=== PATIENT | female | born 1980 | race Caucasian/White ===

== ENCOUNTER → 2020-09-11 12:47 | Outpatient (CLI) | payer OTHER, SELFPAY ==
--- NOTE | ~2020-09-11 | XR_ITS ---
EXAMINATION: XR abdomen obstructive series DATE: 09/11/2020 13:31 INDICATION: Left upper quadrant pain TECHNIQUE: Supine and upright views of the abdomen. FINDINGS: No prior studies for comparison. The visualized lung parenchyma is normal.. There is a nonobstructive bowel gas pattern. Gas and stool are seen throughout the colon to the level of the rectum. There is no free air. . There are cholecy stectomy clips. IMPRESSION: 1. No acute abdominal abnormality. Reviewed, dictated and finalized at location B.
--- NOTE | ~2020-09-11 | XR_ITS ---
EXAMINATION: XR chest 2V 09/11/2020 13:30 INDICATION: Left upper quadrant pain PROCEDURE: 2 view chest COMPARISON: 07/26/2018 FINDINGS: The lungs are clear. The cardiomediastinal silhouette is within normal limits. There are no pleural effusions. There is no pneumothorax suspected. IMPRESSION: 1: NO ACUTE CARDIOPULMONARY DISEASE. Reviewed, dictated and finalized at location B.
== END ==
PROVIDERS: PCP Physician Assistant; Visit Provider Physician Assistant
DX: R10.12 Left upper quadrant pain (principal)
CPT/HCPCS: 71046; 74019

== ENCOUNTER 2020-09-23 07:13 | Outpatient (CLI) | payer OTHER, MEDICAID, SELFPAY ==
--- NOTE | ~2020-09-23 | US_ITS ---
EXAMINATION: US abdomen complete EXAM DATE: 09/23/2020 08:06 INDICATION: R79.89 - Other specified abnormal findings of blood chemistry. TECHNIQUE: Multiple grayscale and Doppler images of the complete abdomen were obtained (by a technolo gist who performed the scan) and subsequently reviewed. There is no prior study for comparison. FINDINGS: The abdominal aorta is normal in caliber. Visualized portion IVC is patent. The pancreatic head a nd body are normal in appearance. The pancreatic tail is not visualized. The liver has normal echogenicity and contour. There are no focal liver lesions identified. There is no evidence of intrahepatic biliary duct dilation. Portal venous flow was seen in the hepatopedal , normal direction and has normal Doppler waveform. Common bile duct measures 6 mm, which is normal. The gallbladder fossa is unremarkable. Right kidney: There is normal contour and echogenicity. It measures 9.3 x 5.3 x 4.4 centimeters. T here are no focal renal lesions identified. There is no hydronephrosis. Left kidney: There is normal contour and echogenicity. It measures 11.4 x 3.6 x 5.1 centimeters. T here are no focal renal lesions identified. There is no hydronephrosis. The spleen measures 10.6 centimeters and is morphologically normal. IMPRESSION: Unremarkable complete abdominal ultrasound exam. Reviewed, dictated and finalized at location A.
== END 2020-09-23 07:14 | disposition home or self-care (01) ==
PROVIDERS: PCP Physician Assistant; Visit Provider Physician Assistant
DX: R79.89 Other specified abnormal findings of blood chemistry (principal)
CPT/HCPCS: 76700

== ENCOUNTER 2021-04-23 13:28 | Emergency (ER) | payer OTHER, MEDICAID, SELFPAY ==
[2021-04-23 13:37] VITALS: BP 116/73; PULSE 92; RESP 16; TEMP 36.9; O2SAT 100
[2021-04-23 13:54] VITALS: BP 116/73; PULSE 92; RESP 16; TEMP 36.9; O2SAT 100
--- NOTE | 2021-04-23 14:00 | ED.URI ---
HPI - URI/Sore Throat General Chief Complaint: Upper Respiratory Infection Stated Complaint: Sore Throat,Headache,Abdominal Pain Source: patient and RN notes reviewed Mode of arrival: ambulatory History of Present Illness HPI Narrative: This is a 40-year-old female that came in a couple of days ago with her 2 sons who were both diagnosed with strep. Patient notes that shortly after she had started to develop throat pain with nausea and stomach aches with a headache. Patient tested negative for strep she will be treated for strep due to her exposure and physical examination. The patient denies SOB, CP, palpitation, extremity numbness, lightheadedness, dizziness, constipation, diarrhea, chills, or fever. MD elicited complaint: sore throat Related Data Allergies Allergy/AdvReac Type Severity Reaction Status Date / Time cefaclor Allergy Mild Rash Verified 04/23/21 13:54 Review of Systems Review of Systems: A 14 organ system Review of Systems was performed and pertinent positives included in the HPI, otherwise remaining ROS is negative. [facility] Past Medical History Medical History (Updated 04/23/21 @ 13:59 by KATHI Gonsalves) Hypothyroidism Surgical History Surgical History H/O thyroidectomy Hx of cholecystectomy Family History Family History Father Malignant neoplasm of prostate Mother Asthma Daughter Rhabdomyosarcoma Grandparent Hypothyroid Social History Social History Smoking packs per day: 0.5 Smoking cigarettes per day: 10.0 Years smoked: 18 Smoking pack-years: 9.00 Smoking status: Current every day smoker Alcohol intake: current Gender identity (if verbalized by the patient): Female Exam Narrative: GENERAL: This is a well-nourished, well-developed patient, in no apparent distress. HEAD: normocephalic, atraumatic. EYES: PERRL. Sclera clear/white. Vision is grossly intact. EARS: External ears normal, auditory canals clear and without drainage, TMs normal without perforation. Hearing grossly intact. NOSE: External nose normal with no obvious nasal discharge, nares without redness, no rhinorrhea. THROAT: Mucous membranes moist, posterior pharynx edematous with erythema. NECK: Neck supple, non-tender without lymphadenopathy, masses or thyromegaly. CARDIOVASCULAR: Regular rate and rhythm without murmurs, gallops, or rubs. RESPIRATORY: Clear to auscultation. Breath sounds equal bilaterally. No wheezes, rales, or rhonchi. GASTROINTESTINAL: Abdomen soft, non-tender, nondistended. Bowel sounds are active. No hepato-splenomegaly, or palpable masses. No guarding. SKIN: warm, intact with no suspicious lesions or rash, good texture and turgor. NEURO: awake, alert, and oriented to person, place and time. There were no obvious focal neurologic abnormalities. Steady gait EXTREMITIES: Normal range of motion. No edema. No calf tenderness. Negative Homans sign bilaterally. BACK: Nontender without deformity or crepitance. No flank tenderness. Course Course Emergency Course: Patient will be treated for pharyngitis. Patient strep test negative patient has come in contact with strep positive patients. Patient son came in a couple of days both diagnosed with strep medicated shortly after she developed symptoms such as sore throat and nausea with a headache. Vital Signs Vital signs: Vital Signs Temperature 98.5 F 04/23/21 13:37 Pulse Rate 92 04/23/21 13:37 Respiratory Rate 16 04/23/21 13:37 Blood Pressure 116/73 04/23/21 13:37 Pulse Oximetry 100 04/23/21 13:37 Temperature 98.5 F 04/23/21 13:54 Pulse Rate 92 04/23/21 13:54 Respiratory Rate 16 04/23/21 13:54 Blood Pressure 116/73 04/23/21 13:54 Pulse Oximetry 100 04/23/21 13:54 MDM - URI/Sore Throat Differential Diagnosis Differential diagnosi
== END 2021-04-23 14:01 | disposition home or self-care (01) ==
PROVIDERS: Emergency Provider Nurse Practitioner; PCP Family Medicine
DX: J02.9 Acute pharyngitis, unspecified (principal); F17.210 Nicotine dependence, cigarettes, uncomplicated; E03.9 Hypothyroidism, unspecified
CPT/HCPCS: 87081; 87880; 99213; G0463

== ENCOUNTER 2021-04-29 13:41 | Emergency (ER) | payer OTHER, MEDICAID, SELFPAY ==
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
[2021-04-29 14:10] VITALS: BP 103/67; PULSE 87; RESP 18; TEMP 36.8; O2SAT 100
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
== END 2021-04-29 15:25 | disposition home or self-care (01) ==
PROVIDERS: Emergency Provider Nurse Practitioner; PCP Family Medicine
DX: S60.212A Contusion of left wrist, initial encounter (principal); Y04.2XXA Assault by strike against or bumped into by another person, initial encounter; Y92.219 Unspecified school as the place of occurrence of the external cause; Y99.0 Civilian activity done for income or pay; E89.0 Postprocedural hypothyroidism; F17.210 Nicotine dependence, cigarettes, uncomplicated
CPT/HCPCS: 73110; 99213; G0463

== ENCOUNTER 2021-06-11 10:53 | Emergency (ER) | payer OTHER, MEDICAID, SELFPAY ==
[2021-06-11 11:59] VITALS: BP 106/63; PULSE 86; RESP 18; TEMP 37; O2SAT 99
[2021-06-11 12:17] VITALS: BP 106/63; PULSE 86; RESP 18; TEMP 37; O2SAT 99
--- NOTE | 2021-06-11 13:18 | ED.URI ---
HPI - URI/Sore Throat General Chief Complaint: Upper Respiratory Infection Stated Complaint: sorethroat,bilateral ear discomfort,rash on arms Time Seen by Provider: 06/11/21 13:18 Source: patient and RN notes reviewed Mode of arrival: ambulatory Limitations: no limitations History of Present Illness HPI Narrative: 40-year-old female presents with concern for sore throat, headache, fever, bilateral ear pain. Reports symptoms started 2 days ago. She also reports a rash on her right arm that is occasionally painful. Reports it has come and gone every couple months for more than a year. Reports it is in the same location. She is concerned for shingles. She denies any other area of rash. MD elicited complaint: cough and sore throat Related Data Allergies Allergy/AdvReac Type Severity Reaction Status Date / Time cefaclor Allergy Mild Rash Verified 04/23/21 13:54 Review of Systems Review of Systems: CONSTITUTIONAL: Denies malaise, chills, sweats. Reports fever fever. EYES: Denies visual changes, redness, or discharge. ENT: Reports rhinorrhea, congestion, sore throat, ear pain. Denies sinus pain CARDIOVASCULAR: Denies chest pain, palpitations, or edema. RESPIRATORY: Denies cough. Denies dyspnea. GASTROINTESTINAL: Denies abdominal pain, nausea, vomiting, diarrhea SKIN: Reports painful rash on her right forearm MUSCULOSKELETAL: Denies myalgia. NEUROLOGIC: Denies headache. All systems reviewed & are unremarkable except as noted in HPI and below PMFSH Past Medical History Medical History Hypothyroidism Surgical History Surgical History H/O thyroidectomy Hx of cholecystectomy Family History Family History Father Malignant neoplasm of prostate Mother Asthma Daughter Rhabdomyosarcoma Grandparent Hypothyroid Social History Social History Smoking packs per day: 0.5 Smoking cigarettes per day: 10.0 Years smoked: 18 Smoking pack-years: 9.00 Smoking status: Current every day smoker Alcohol intake: current Gender identity (if verbalized by the patient): Female Comments At time of signature, agree with nursing past medical, surgical, social and family history. There is no relevant family history pertinent to the presenting complaint Exam Narrative: GENERAL: Well-appearing, well-nourished, and in no acute distress. HEAD: Normocephalic EYES: PERRLA, conjunctivae clear ENT: Nares clear. Mucous membranes moist. TM pearly montgomery with sharp light reflex bilaterally; no tragal tenderness. Oropharynx not erythematous without lesions. Tonsils not enlarged and without exudate, no drooling, no hoarseness, no trismus, uvula midline. NECK: Supple. No lymphadenopathy CHEST: Clear to auscultation, breath sounds equal. No wheezing, rhonchi, rales, or stridor. No respiratory distress, speaks in full sentences. HEART: Regular rate and rhythm. No murmur heard. SKIN: Warm, dry 4 cm area of vesicular rash in later stages of healing noted to the right forearm NEURO: Alert and oriented x3. PSYCH: Normal mood and affect Course Course Emergency Course: Patient is aware of diagnosis, understands and agrees to treatment plan. Anticipatory guidance given. Patient agrees to follow-up as directed and is aware of reasons to seek care at the emergency department. Portions of this record may have been created with voice recognition software Vital Signs Vital signs: Vital Signs Temperature 98.6 F 06/11/21 11:59 Pulse Rate 86 06/11/21 11:59 Respiratory Rate 18 06/11/21 11:59 Blood Pressure 106/63 06/11/21 11:59 Pulse Oximetry 99 06/11/21 11:59 Temperature 98.6 F 06/11/21 12:17 Pulse Rate 86 06/11/21 12:17 Respiratory Rate 18 06/11/21 12:17 Blood Pressure 106/63 06/11
== END 2021-06-11 14:05 | disposition home or self-care (01) ==
PROVIDERS: Emergency Provider Nurse Practitioner; PCP Family Medicine
DX: J06.9 Acute upper respiratory infection, unspecified (principal); Z20.822 Contact with and (suspected) exposure to COVID-19; F17.210 Nicotine dependence, cigarettes, uncomplicated; E03.9 Hypothyroidism, unspecified
CPT/HCPCS: 87070; 87081; 87255; 87426; 87880; 99213; C9803; G0463

== ENCOUNTER 2021-06-19 15:05 | Emergency (ER) | payer OTHER, MEDICAID, SELFPAY ==
[2021-06-19 15:20] VITALS: BP 122/84; PULSE 90; RESP 18; TEMP 36.7; O2SAT 100
--- NOTE | 2021-06-19 15:40 | ED.URI ---
HPI - URI/Sore Throat General Chief Complaint: Upper Respiratory Infection Stated Complaint: cold symptoms Time Seen by Provider: 06/19/21 15:41 Source: patient, RN notes reviewed and old records reviewed Mode of arrival: ambulatory Limitations: no limitations History of Present Illness HPI Narrative: 40-year-old female presents to [facility] with complaints of flulike symptoms on and off since . She states she has had a sore throat, headache, some nausea, cough, pressure to her ears, denies any fever but has had hot flashes. Patient states she had a negative Covid antigen done on the and negative strep but no culture has been finalized. Patient reports that she has had COVID vaccines but no booster and has not had flu shot.Patient denies any acute dyspnea patient even and unlabored. MD elicited complaint: cough, sore throat and other (headache, nausea, dizzy,) Related Data Allergies Allergy/AdvReac Type Severity Reaction Status Date / Time cefaclor Allergy Mild Rash Verified 06/19/21 15:32 [facility] Past Medical History Medical History Hypothyroidism Surgical History Surgical History H/O thyroidectomy Hx of cholecystectomy Family History Family History Father Malignant neoplasm of prostate Mother Asthma Daughter Rhabdomyosarcoma Grandparent Hypothyroid Social History Social History Smoking packs per day: 0.5 Smoking cigarettes per day: 10.0 Years smoked: 18 Smoking pack-years: 9.00 Smoking status: Current every day smoker Alcohol intake: current Gender identity (if verbalized by the patient): Female Course Course Level of Care: Express Care Visit Vital Signs Vital signs: Vital Signs Temperature 36.7 C 06/19/21 15:20 Pulse Rate 90 06/19/21 15:20 Respiratory Rate 18 06/19/21 15:20 Blood Pressure 122/84 06/19/21 15:20 Pulse Oximetry 100 06/19/21 15:20 Temperature 36.7 C 06/19/21 15:20 Pulse Rate 90 06/19/21 15:20 Respiratory Rate 18 06/19/21 15:20 Blood Pressure 122/84 06/19/21 15:20 Pulse Oximetry 100 06/19/21 15:20 MDM - URI/Sore Throat Differential Diagnosis Differential diagnosis: Likely upper respiratory infection, viral infection and pharyngitis Medical Records Attestation: I reviewed the patient's medical records. Lab Data Attestation: I reviewed the patient's lab results. Lab results narrative: Influenza A negative influenza B neck, PCR Covid awaiting results, strep culture pending Critical Care Time Critical Care Time Critical Care Time: No Discharge Plan Discharge Clinical Impression: Encounter for screening for COVID-19 Upper respiratory infection Qualifiers: URI type: unspecified URI Qualified Code(s): J06.9 - Acute upper respiratory infection, unspecified Patient Disposition: Home, Self-Care Condition: Stable Instructions: Upper Respiratory Infection (ED) Additional Instructions: Increase fluids especially juices and water [id number] cough and cold medicine of your choice for your symptoms Claritin Leida or Zyrtec daily while having nasal symptoms heat to the face 20-30 minutes 4-6 times a day for pain Salt water gargles, throat lozenges or throat sprays as desired If your symptoms persist, change or worsen significantly before you can contact your personal physician then please, without delay, go to the emergency department for further evaluation. Follow-up with PCP in 7-10 days or sooner if needed Must quarantine until PCR has resulted Prescriptions: No Action levothyroxine 150 mcg tablet 150 mcg PO DAILY Qty: 30 RF: 2 Follow-up/Referrals: Ambar Berrios MD [Primary Care Provider] - Time of Disposition: 16:37 Quality Rodger Coma Scale Eyes:
[2021-06-21 16:23] LABS: SARS-CoV-2 RNA PCR Negative
== END 2021-06-19 16:45 | disposition home or self-care (01) ==
PROVIDERS: Emergency Provider Registered Nurse; PCP Family Medicine
DX: J06.9 Acute upper respiratory infection, unspecified (principal); Z20.822 Contact with and (suspected) exposure to COVID-19; E89.0 Postprocedural hypothyroidism
CPT/HCPCS: 87804; 99213; C9803; G0463; U0003; U0005

== ENCOUNTER 2021-12-10 13:32 | Emergency (ER) | payer OTHER, MEDICAID, SELFPAY ==
[2021-12-10 13:47] VITALS: BP 107/78; PULSE 95; RESP 20; TEMP 37; O2SAT 98
--- NOTE | 2021-12-10 14:05 | ED.URI ---
HPI - URI/Sore Throat General Chief Complaint: Upper Respiratory Infection Stated Complaint: bodyache,stuffy nose Time Seen by Provider: 12/10/21 14:06 History of Present Illness HPI Narrative: Annie Marrero is a 41 yo female with PMH of thyroid disease [facility], states has a bad taste in her mouth her sinuses are draining and she felt that he last night. Not had a fever. Took Zyrtec and nyquil. Started about 2 days ago has not improved. Discussed issues around bacterial and viral infections Related Data Home Medications Medication Instructions Recorded Confirmed liothyronine 5 mcg tablet 1 tablet DAILY 12/10/21 12/10/21 Allergies Allergy/AdvReac Type Severity Reaction Status Date / Time cefaclor Allergy Mild Rash Verified 12/10/21 14:13 Review of Systems Review of Systems: CONSTITUTIONAL: Denies fever, chills, sweats. EYES: Denies visual changes, redness, discharge. ENT: Denies rhinorrhea, has congestion, sore throat, otalgia. CARDIOVASCULAR: Denies chest pain, palpitations, edema. RESPIRATORY: Denies dyspnea, wheezing, cough GASTROINTESTINAL: Denies abdominal pain, nausea, vomiting, diarrhea. GENITOURINARY: Denies dysuria, hematuria, abnormal discharge SKIN: Denies rash or itching. NEUROLOGIC: Denies numbness, or focal weakness. PSYCHIATRIC: Denies anxiety or depression. [facility] Past Medical History Medical History Hypothyroidism Surgical History Surgical History H/O thyroidectomy Hx of cholecystectomy Family History Family History Father Malignant neoplasm of prostate Mother Asthma Daughter Rhabdomyosarcoma Grandparent Hypothyroid Social History Social History Smoking packs per day: 0.5 Smoking cigarettes per day: 10.0 Years smoked: 18 Smoking pack-years: 9.00 Smoking status: Current every day smoker Alcohol intake: current Gender identity (if verbalized by the patient): Female Comments At time of signature, I agree with nursing past medical, surgical, social and family history. There is no relevant family history pertinent to the presenting complaint. Exam Narrative: GENERAL: This is a well-nourished, well-developed patient, in mild distress. HEAD: normocephalic, atraumatic. EYES: Sclera clear/white. Vision is grossly intact. EARS: External ears normal, auditory canals erythematous and without drainage, TMs normal without perforation. Hearing grossly intact. NOSE: External nose normal without nasal discharge, nares without redness, no rhinorrhea. THROAT: Mucous membranes moist, posterior pharynx mild erythema NECK: Neck supple, non-tender CARDIOVASCULAR: Regular rate and rhythm without murmurs, gallops, or rubs. RESPIRATORY: Clear to auscultation. Breath sounds equal bilaterally. No wheezes, rales, or rhonchi. GASTROINTESTINAL: Not done SKIN: warm, intact with no suspicious lesions or rash, good texture and turgor. NEURO: awake, alert, and oriented to person, place and time. There were no obvious focal neurologic abnormalities. Steady gait EXTREMITIES: Normal range of motion. BACK: Nontender without deformity Course Course Emergency Course: Patient here with upper respiratory symptoms including sinus drainage COVID test is positive Strep and flu are negative Start on Flonase, Sudafed, Tylenol and ibuprofen push fluids and isolate Level of Care: Express Care Visit Vital Signs Vital signs: Vital Signs Temperature 98.6 F 12/10/21 13:47 Pulse Rate 95 12/10/21 13:47 Respiratory Rate 20 12/10/21 13:47 Blood Pressure 107/78 12/10/21 13:47 Pulse Oximetry 98 12/10/21 13:47 Oxygen Delivery Room Air 12/10/21 13:47 Temperature 98.6 F 12/10/21 13:47 Pulse Rate 95 12/10/21 13:47 R
== END 2021-12-10 14:26 | disposition home or self-care (01) ==
PROVIDERS: Emergency Provider Nurse Practitioner; PCP Family Medicine
DX: U07.1 COVID-19 (principal); E03.9 Hypothyroidism, unspecified; F17.210 Nicotine dependence, cigarettes, uncomplicated
CPT/HCPCS: 87081; 87426; 87804; 87880; 99213; C9803; G0463

== ENCOUNTER 2022-05-12 17:23 | Emergency (ER) | payer OTHER, SELFPAY ==
--- NOTE | ~2022-05-12 | XR_ITS ---
XR chest 2V DATE: 05/12/2022 18:03 INDICATION: Cough for about a week TECHNIQUE: 2 views COMPARISON: 09/11/2020 2 view chest FINDINGS: Normal heart size. No hilar or mediastinal enlargement. No pulmonary infiltrate or consolid ation, pleural effusion or pulmonary vascular congestion or pneumothorax. Status post cholecystectomy. Mild thoracolumbar dextroscoliosis. IMPRESSION: No active cardiopulmonary disease Reviewed, dictated and finalized at location A. Y SALES AUDIT CLERK
[2022-05-12 17:46] VITALS: BP 121/83; PULSE 79; RESP 18; TEMP 36.6; O2SAT 99
--- NOTE | 2022-05-12 18:04 | ED.URI ---
HPI - URI/Sore Throat General Chief Complaint: Upper Respiratory Infection Stated Complaint: chest congestion,headache,dizziness Time Seen by Provider: 05/12/22 17:50 Source: patient Mode of arrival: ambulatory Limitations: no limitations History of Present Illness HPI Narrative: Annie is a 41-year-old female patient presenting to clinic today with complaints of chest congestion, headache, dizziness x6 days. she read denies any fever or chills currently. Reports that symptoms started with a sore throat but that has resolved. Was exposed to someone with COVID however she is taken for COVID test during her illness and all of been negative MD elicited complaint: sore throat and nasal congestion Related Data Home Medications Medication Instructions Recorded Confirmed liothyronine 5 mcg tablet 1 tablet DAILY 12/10/21 05/12/22 Allergies Allergy/AdvReac Type Severity Reaction Status Date / Time cefaclor Allergy Mild Rash Verified 05/12/22 17:53 Review of Systems Review of Systems: Pertinent positives per HPI. Patient denies any fever, chills, rash, headache, visual changes, dizziness, cough, shortness of breath, chest pain, palpitations, nausea, vomiting, diarrhea, constipation, abdominal pain, or any urinary issues. [facility] Past Medical History Medical History Hypothyroidism Surgical History Surgical History H/O thyroidectomy Hx of cholecystectomy Family History Family History Father Malignant neoplasm of prostate Mother Asthma Daughter Rhabdomyosarcoma Grandparent Hypothyroid Social History Social History Smoking packs per day: 0.5 Smoking cigarettes per day: 10.0 Years smoked: 18 Smoking pack-years: 9.00 Smoking status: Current every day smoker Alcohol intake: current Gender identity (if verbalized by the patient): Female Comments At the time of my signature, I reviewed and agree with the nursing past medical, surgical, social, and family history. There is no relevant family history pertinent to the patient complaint. Exam Narrative: General: Well-developed, well nourished, in no apparent distress Head: Normocephalic, atraumatic Eyes: Pupils equally round and reactive to light bilaterally, EOM intact, sclera and conjunctive clear, no discharge, lids normal Ears: TMs intact, dull, bulging, ear canals clear, no drainage, grossly hearing normal. Nose: Nares patent, clear nasal discharge, no inflammation, no sinus tenderness. Mouth: Oral pharynx without lesions or masses, good dentition, MMM. postnasal drip Neck: Supple, trachea midline, no enlargement of anterior or posterior cervical nodes, no thyroid masses or goiter palpable. Cardio: Regular rate and rhythm, s1 and s2 normal, no murmur appreciated. Resp: Clear to auscultation bilaterally, no rhonchi, rales, wheezing or rubs Course Course Emergency Course: Portions of this record may have been created with voice recognition software. Level of Care: Express Care Visit Vital Signs Vital signs: Vital Signs Temperature 36.6 C 05/12/22 17:46 Pulse Rate 79 05/12/22 17:46 Respiratory Rate 18 05/12/22 17:46 Blood Pressure 121/83 05/12/22 17:46 Pulse Oximetry 99 05/12/22 17:46 Oxygen Delivery Room Air 05/12/22 17:46 Temperature 36.6 C 05/12/22 17:46 Pulse Rate 79 05/12/22 17:46 Respiratory Rate 18 05/12/22 17:46 Blood Pressure 121/83 05/12/22 17:46 Pulse Oximetry 99 05/12/22 17:46 Oxygen Delivery Room Air 05/12/22 17:46 Vital signs reviewed MDM - URI/Sore Throat MDM Narrative Medical decision making narrative: At the time of the patient is resting comfortably on the exam table. Chest x-ray was performed and was negative for any sig
== END 2022-05-12 17:50 | disposition home or self-care (01) ==
PROVIDERS: Emergency Provider Nurse Practitioner Family; PCP Family Medicine
DX: J06.9 Acute upper respiratory infection, unspecified (principal); R05.9 Cough, unspecified; H69.83 Other specified disorders of Eustachian tube, bilateral; F17.210 Nicotine dependence, cigarettes, uncomplicated; E89.0 Postprocedural hypothyroidism
CPT/HCPCS: 71046; 99213; G0463

== ENCOUNTER 2022-09-30 11:34 | Emergency (ER) | payer OTHER, SELFPAY ==
[2022-09-30 11:52] VITALS: BP 126/77; PULSE 80; RESP 16; TEMP 36.3; O2SAT 100
== END 2022-09-30 14:26 | disposition left against medical advice (07) ==
PROVIDERS: PCP Family Medicine
DX: R42 Dizziness and giddiness (principal)
CPT/HCPCS: 99199

== ENCOUNTER 2022-10-01 11:52 | Outpatient (CLI) | payer OTHER, SELFPAY ==
--- NOTE | ~2022-10-01 | XR_ITS ---
Supine and upright views of the abdomen Clinical history: Chronic bloating and constipation Findings: Bowel gas pattern is nonspecific. No evidence for obstruction or free air. No abnormal mass lesion or calcification is seen. Cholecystectomy clips are present. Osseous structures are intact. Impression: No significant abnormality is seen. Minimal stool burden. Reviewed, dictated and finalized at [facility]. Impression: No significant abnormality is seen. Minimal stool burden.
[2022-10-01 12:39] LABS: Hematocrit 40.7 % (37.0-47.0); Hemoglobin 13.6 g/dL (12.0-15.0); Mean Corpuscular HGB Conc 33.4 g/dl (32-36); Mean Corpuscular Hemoglobin 30.2 pg (26-34); Mean Corpuscular Volume 90.4 fl (80-100); Mean Platelet Volume 8.6 fl (7.4-10.4); Platelet Count Result 279 k/mm3 (150-375); Red Cell Distribution Width 12.3 % (11.5-14.5); White Blood Count 9.7 K/mm3 (4.5-10.0)
[2022-10-01 12:51] LABS: Alanine Aminotransferase 23 U/L (6-35); Albumin Level 4.6 g/dL (3.5-5.1); Alkaline Phosphatase 47 U/L (38-126); Anion Gap 8 mmol/L (8-16); Aspartate Amino Transferase 18 U/L (14-36); Bilirubin,Total 0.4 mg/dL (0.2-1.3); Blood Urea Nitrogen 21 mg/dL (7-17); Calcium 9.2 mg/dL (8.4-10.2); Carbon Dioxide 28 mmol/L (22-30); Chloride 102 mmol/L (98-107); Estimated Glomerular Filt Rate > 60; Glucose 92 mg/dL (65-110); Potassium 4.3 mmol/L (3.4-5.0); Sodium 138 mmol/L (137-145)
--- NOTE | 2022-10-01 12:52 | ECG_ITS ---
Measurements Intervals [place] Rate: 69 P: 49 SC: 201 QRS: 64 QRSD: 80 T: 46 QT: 358 QTc: 385 Interpretive Statements SINUS RHYTHM NORMAL ELECTROCARDIOGRAM NO PREVIOUS ECG AVAILABLE FOR COMPARISON Electronically Signed On 10-01-2022 15:40:12 CDT by Edward Mondragon M.D.
[2022-10-01 13:00] LABS: Hemoglobin A1C 5.2 % (<5.7)
[2022-10-01 13:20] LABS: Free T4 Free Thyroxine 1.35 ng/mL (0.78-2.19)
[2022-10-01 14:39] LABS: Thyroid Stimulating Hormone 0.037 uIU/mL (0.465-4.680)
[2022-10-08 17:10] LABS: Gliadin AB, IgG <1.0 U/mL (<15.0); TTG IGA AB <1.0 U/mL (<15.0)
== END 2022-10-01 11:53 | disposition home or self-care (01) ==
PROVIDERS: PCP Family Medicine; Referring Provider Nurse Practitioner Family; Visit Provider Physician Assistant
DX: R42 Dizziness and giddiness (principal); R14.0 Abdominal distension (gaseous); R53.83 Other fatigue; K59.00 Constipation, unspecified
CPT/HCPCS: 36415; 74018; 80053; 83036; 84439; 84443; 85027; 86255; 86364; 93005

== ENCOUNTER 2023-07-06 19:33 | Emergency (ER) | payer BC, SELFPAY ==
--- NOTE | ~2023-07-06 | XR_ITS ---
EXAMINATION: XR chest 2V DATE: 07/06/2023 20:25 INDICATION: Shortness of breath. Cough. Chest pain. TECHNIQUE: Frontal and lateral views of the chest were obtained. COMPARISON: Chest 2 views 05/12/2022 FINDINGS: There is no pneumonia, pleural effusion, or pneumothorax. The heart size is normal. Surgica l clips in the right upper quadrant are likely from cholecystectomy. IMPRESSION: 1. No acute cardiopulmonary disease. Reviewed, dictated and finalized at location E. E PRACTITIONER PHYSICIANS ASSISTANT
[2023-07-06 19:35] VITALS: BP 136/94; PULSE 85; RESP 20; TEMP 37.2; O2SAT 100
--- NOTE | 2023-07-06 19:39 | ECG_ITS ---
Measurements Intervals [place] Rate: 76 P: 47 NC: 196 QRS: 49 QRSD: 86 T: 44 QT: 354 QTc: 399 Interpretive Statements SINUS RHYTHM BASELINE WANDER- V2-V3 NORMAL ECG NO PREVIOUS ECG AVAILABLE FOR COMPARISON Electronically Signed On 07-07-2023 6:30:53 HPLC CHEMIST by Javy La D.O.
[2023-07-06 19:58] LABS: Basophils Percent Auto 0.5 % (0.2-1.2); Eosinophils Absolute Auto 0.2 K/mm3 (0-0.3); Eosinophils Percent Auto 2.3 % (0-4.4); Hematocrit 36.9 % (37.0-47.0); Hemoglobin 12.3 g/dL (12.0-15.0); Immature Granulocyte Absolute 0.02 K/mm3 (0.00-0.031); Immature Granulocyte Percent A 0.3 % (0-0.5); Lymphocytes Percent Auto 33.2 % (18.3-44.2); Mean Corpuscular HGB Conc 33.3 g/dl (32-36); Mean Corpuscular Hemoglobin 29.9 pg (26-34); Mean Corpuscular Volume 89.6 fl (80-100); Mean Platelet Volume 8.2 fl (7.4-10.4); Monocytes Absolute Auto 0.6 K/mm3 (0.1-0.6); Neutrophils Absolute Auto 4.5 K/mm3 (1.3-6.7); Neutrophils Percent Auto 56.7 % (45.5-73.1); Platelet Count Result 297 k/mm3 (150-375); Red Blood Count 4.12 M/mm3 (4.2-5.4); Red Cell Distribution Width 12.1 % (11.5-14.5); White Blood Count 7.8 K/mm3 (4.5-10.0)
[2023-07-06 20:06] LABS: Alanine Aminotransferase 17 U/L (6-35); Albumin Level 4.5 g/dL (3.5-5.1); Alkaline Phosphatase 43 U/L (38-126); Anion Gap 12 mmol/L (8-16); Aspartate Amino Transferase 23 U/L (14-36); Bilirubin,Total 0.4 mg/dL (0.2-1.3); Blood Urea Nitrogen 23 mg/dL (7-17); Calcium 9.5 mg/dL (8.4-10.2); Carbon Dioxide 20 mmol/L (22-30); Chloride 106 mmol/L (98-107); Estimated CRCL calculation 79 ml/min; Estimated Glomerular Filt Rate > 60; Glucose 122 mg/dL (65-110); Potassium 3.7 mmol/L (3.4-5.0); Sodium 138 mmol/L (137-145)
[2023-07-06 20:18] LABS: Troponin I < 0.012 ng/mL (0.000-0.034)
[2023-07-06 20:35] LABS: Influenza A QL RT-PCR Negative (Negative); Influenza B QL RT-PCR Negative (Negative); RSV RNA, RT-PCR Negative (Negative); SARS-CoV-2 RNA PCR Negative (Negative)
[2023-07-06 22:49] VITALS: BP 103/52; PULSE 63; RESP 17; O2SAT 97
[2023-07-06 23:09] VITALS: BP 93/64; PULSE 68; RESP 18; O2SAT 98
--- NOTE | 2023-07-06 23:44 | ED.GENADULT ---
HPI - General Adult General Chief complaint: Shortness of Breath/Dyspnea Stated complaint: I cannot breath Time Seen by Provider: 07/06/23 22:56 Source: patient Mode of arrival: ambulatory Limitations: no limitations History of Present Illness HPI narrative: This is a 42-year-old female who presents to the ED with chief complaint of shortness of breath for the past 2 weeks intermittently. Reports that she occasionally has some right-sided chest heaviness. She reports that this caused her to feel anxious and she started to panic today. Reports that she was sick with a viral illness a couple weeks ago. Denies any current cough, fevers, chills, congestion, leg swelling, palpitations, recent travel, hospitalization or estrogen hormone use. Related Data Home Medications Medication Instructions Recorded Confirmed polyethylene glycol 3350 17 gram 17 g PO DAILY 09/21/22 06/24/23 oral powder packet (Miralax) thyroid (pork) 120 mg tablet 120 mg PO DAILY 09/21/22 06/24/23 ([place] Thyroid) liothyronine 5 mcg tablet 10 mcg PO BID 09/29/22 06/24/23 Allergies Allergy/AdvReac Type Severity Reaction Status Date / Time cefaclor Allergy Mild Rash Verified 06/24/23 14:04 Review of Systems Review of Systems: All systems as dictated in [facility] Past Medical History Medical History Abdominal bloating Anxiety Niyah's disease Hypothyroidism Tobacco use Surgical History Surgical History H/O thyroidectomy Hx of cholecystectomy Family History Family History Father Malignant neoplasm of prostate Mother Asthma Daughter Rhabdomyosarcoma Grandparent Hypothyroid Social History Social History Smoking packs per day: 0.5 Smoking cigarettes per day: 10.0 Years smoked: 20 Smoking pack-years: 10.00 Smoking status: Current every day smoker Alcohol intake: never Substance use: never Substance use type: does not use Lack of Transportation: No Lack of Food: Never True Current Housing: I Have Housing Concerned About Future Housing: No Difficulty Paying Gas/Electric Bills: No Difficulty Paying for Meds: No Currently Unemployed: No Education: Trade/Vocational Certificate Difficulty w/ Childcare or Family Care: No Gender identity (if verbalized by the patient): Female Exam Narrative: GENERAL: Well-appearing, well-nourished, and in no acute distress. HEAD: Normocephalic, atraumatic. EYES: PERRLA and EOMI. ENT: Nares clear, no rhinorrhea or epistaxis. Mucous membranes moist. Oropharynx without tonsillar hypertrophy exudate or other lesions. NECK: Supple. No adenopathy or masses. CHEST: No respiratory distress. Clear to auscultation. No wheezes rales or rhonchi HEART: Regular rate and rhythm. No murmur heard. Normal peripheral pulses. ABDOMEN: Soft, nontender, nondistended, normal active bowel sounds. MSK: Normal range of motion. No edema. SKIN: Warm, dry, no rash. NEURO: Alert and oriented x3. No focal deficits. PSYCH: Normal mood and affect. Course Vital Signs Vital signs: Vital Signs Temperature 99 F 07/06/23 19:35 Pulse Rate 85 07/06/23 19:35 Respiratory Rate 20 07/06/23 19:35 Blood Pressure 136/94 H 07/06/23 19:35 Pulse Oximetry 100 07/06/23 19:35 Oxygen Delivery Room Air 07/06/23 19:35 Temperature 99 F 07/06/23 19:35 Pulse Rate 65 07/07/23 00:00 Respiratory Rate 18 07/07/23 00:00 Blood Pressure 111/64 07/07/23 00:00 Pulse Oximetry 98 07/07/23 00:00 Oxygen Delivery Room Air 07/06/23 19:35 Medical Decision Making MDM Narrative Medical decision making narrative: This is a 42-year-old female who presents to the ED with chief complaint of right-sided chest pains and shortness of breath the past 2 weeks intermittently. V
[2023-07-07] VITALS: BP 111/64; PULSE 65; RESP 18; O2SAT 98
== END 2023-07-07 | disposition home or self-care (01) ==
PROVIDERS: Emergency Medicine; Emergency Provider Physician Assistant; PCP Family Medicine
DX: R06.00 Dyspnea, unspecified (principal); Z20.822 Contact with and (suspected) exposure to COVID-19; F17.210 Nicotine dependence, cigarettes, uncomplicated; E89.0 Postprocedural hypothyroidism; F41.9 Anxiety disorder, unspecified; E06.3 Autoimmune thyroiditis
CPT/HCPCS: 36415; 71046; 80053; 84484; 85025; 87637; 93005; 99284

== ENCOUNTER 2023-12-09 15:23 | Outpatient (CLI) | payer BC, SELFPAY ==
--- NOTE | ~2023-12-09 | MM_ITS ---
EXAMINATION: MM scrn fredrick implant BI w emory HISTORY: Screening mammogram TECHNIQUE: Craniocaudal and mediolateral oblique 3-D tomosynthesis images with implant displacement a nd synthetic 2-D images were generated. Craniocaudal and mediolateral oblique views of the breasts wi thout implant displacement were obtained using full field digital mammography. CAD analysis was submi tted and interpreted. COMPARISON: No prior mammogram is available for comparison at this institution. BREAST PARENCHYMAL COMPOSITION: The breasts are heterogeneously dense, which may obscure small masses . FINDINGS: There is no evidence of suspicious mass, calcification, or architectural distortion to sugg est malignancy in either breast. There has been no suspicious interval change. IMPRESSION: No mammographic evidence of malignancy. Recommend routine screening mammography in one year. BI-RADS Category 1: Negative Reviewed, dictated and finalized at [facility].
== END 2023-12-09 15:24 | disposition home or self-care (01) ==
LOC: ANHIMG 15:55
PROVIDERS: PCP Family Medicine; Visit Provider Family Medicine
DX: Z12.31 Encounter for screening mammogram for malignant neoplasm of breast (principal)
CPT/HCPCS: 77063; 77067

== ENCOUNTER 2024-08-06 09:14 | Outpatient (CLI) | payer BC, SELFPAY ==
--- NOTE | ~2024-08-06 | US_ITS ---
EXAMINATION: US thyroid DATE: 08/06/2024 09:30 INDICATION: Post thyroidectomy in 1995 TECHNIQUE: Multiple ultrasound images of the thyroid were obtained. COMPARISON: None. FINDINGS: No discrete thyroid tissue is appreciated on dedicated sonographic evaluation of the thyroid gland fo ssa. IMPRESSION: As above. Reviewed, dictated and finalized at location A. DENTIAL CARE FACILITY MANAGER IMPRESSION: As above.
== END 2024-08-06 09:15 | disposition home or self-care (01) ==
PROVIDERS: PCP Family Medicine; Visit Provider Family Medicine
DX: E04.1 Nontoxic single thyroid nodule (principal)
CPT/HCPCS: 76536

== ENCOUNTER 2025-04-15 12:36 | Emergency (ER) | payer BC, SELFPAY ==
[2025-04-15 12:51] VITALS: BP 110/67; PULSE 89; RESP 18; TEMP 36.8; O2SAT 100
--- NOTE | 2025-04-15 13:03 | ED.URI ---
HPI - URI/Sore Throat General Chief Complaint: Upper Respiratory Infection Stated Complaint: URI Time Seen by Provider: 04/15/25 13:03 Source: patient Mode of arrival: ambulatory Limitations: no limitations History of Present Illness HPI Narrative: 44-year-old female presents with complaint of sinus pressure, congestion, green nasal drainage for the past 5-6 days. Reports bilateral ear pressure and pain for 1 day. Afebrile. Using [id number] Flonase, Mucinex and takes a daily antihistamine. A no nausea vomiting diarrhea. All systems reviewed and negative except as noted above. Related Data Home Medications ?Medication ?Instructions ?Recorded ?Confirmed ?Last Taken ?Type semaglutide 0.25 mg or 0.5 mg (2 0.25 mg subcut WEEKLY 04/15/25 04/15/25 Unknown History mg/3 mL) subcutaneous pen injector testosterone 50 mg/mL mg IM 04/15/25 Unknown History intramuscular solution valacyclovir 500 mg tablet 500 mg PO DAILY 04/15/25 04/15/25 Unknown History (Valtrex) Allergies Allergy/AdvReac Type Severity Reaction Status Date / Time cefaclor Allergy Mild Rash Verified 04/15/25 12:55 prednisone Allergy Mild Rash Verified 04/15/25 13:10 [facility] Past Medical History Medical History Poison mónica (~11/2024) Weight gain Leg swelling Swelling of both hands Anxiety Tobacco use Abdominal bloating Niyah's disease Hypothyroidism Surgical History Surgical History Hx of cholecystectomy H/O thyroidectomy Family History Family History Father Malignant neoplasm of prostate Mother Asthma Daughter Rhabdomyosarcoma Grandparent Hypothyroid Social History Social History Smoking packs per day: 0.5 Smoking cigarettes per day: 10.0 Years smoked: 20 Smoking pack-years: 10.00 Smoking status: Current every day smoker Alcohol intake: never Substance use: never Substance use type: does not use Lack of Transportation: No Lack of Food: Never True Current Housing: I Have Housing Concerned About Future Housing: No Difficulty Paying Gas/Electric Bills: No Difficulty Paying for Meds: No Currently Unemployed: No Education: Trade/Vocational Certificate Difficulty w/ Childcare or Family Care: No Gender identity (if verbalized by the patient): Female Comments At time of signature, agree with nursing past medical, surgical, social and family history. There is no relevant family history pertinent to the presenting complaint. Exam Narrative: GENERAL: This is a well-nourished, well-developed patient, ill-appearing but in no acute distress HEAD: normocephalic, atraumatic. EYES: PERRL. Sclera clear/white. Vision is grossly intact. EARS: External ears normal, auditory canals clear and without drainage, Fluid with mild erythema to bilateral TMs with mild bulging. No perforation bilaterally. Hearing grossly intact. NOSE: External nose normal with Congestion, purulent nasal drainage, erythema and swelling to bilateral nares. Frontal and maxillary sinus tenderness on palpation. THROAT: Mucous membranes moist, erythematous with postnasal drainage. No significant swelling or exudates NECK: Neck supple, non-tender without lymphadenopathy, masses or thyromegaly. CARDIOVASCULAR: Regular rate and rhythm without murmurs, gallops, or rubs. RESPIRATORY: Clear to auscultation. Breath sounds equal bilaterally. No wheezes, rales, or rhonchi. SKIN: warm, Dry, intact with no suspicious lesions or rash, good texture and turgor. NEURO: awake, alert, and oriented to person, place and time. There were no obvious focal neurologic abnormalities. EXTREMITIES: No joint tenderness, effusion, or edema noted. No calf tenderness. Negative Homans sign bilaterally. BACK: Nontender without deformity. No CVA tenderness. Course Course Level of Care: Express Care Visit Vital Signs Vital signs: Vital Signs Temperature 36.8 C 04/15/25 12:51 Pulse Rate 89 04/15/25 12:51 Respiratory Rate 18 04/15/25 12:51 Blood Pressure 110/67 04/15/25 12:51 Pulse Oximetry 100 04/15/25 12:51 Oxygen Delivery Room Air 04/15/25 12:51 Temperature 36.8 C 04/15/25 12:51 Pulse Rate 89 04/15/25 12:51 Respiratory Rate 18 04/15/25 12:51 Blood Pressure 110/67 04/15/25 12:51 Pulse Oximetry 100 04/15/25 12:51 Oxygen Delivery Room Air 04/15/25 12:51 Reviewed MDM - URI/Sore Throat MDM Narrative Medical decision making narrative: will treat with Augmentin for bilateral serous otitis media. Patient is well-appearing, nontoxic. Patient agrees with plan of care. Differential Diagnosis Differential diagnosis: Likely upper respiratory infection, otitis media and sinusitis Discharge Plan Discharge Clinical Impression: Acute sinusitis, Acute serous otitis media of both ears Patient Disposition: Home Condition: Stable Instructions: Antibiotic Form, Fluid In The Ear (Serous Otitis Media) (ED) Additional Instructions: take antibiotic as prescribed until gone. Take Tylenol or ibuprofen every 6-8 hours as needed for pain. Continue [id number] steroid nasal spray and antihistamine as directed on packaging. See your primary care physician if symptoms are not improving. Patient Language: Swedish Prescriptions: New fluconazole 150 mg tablet 150 mg PO ONCE 1 Days Qty: 1 0RF amoxicillin-pot clavulanate 875-125 mg tablet 1 tablet PO Q12H 10 Days Qty: 20 0RF No Action testosterone 50 mg/mL solution IM semaglutide 0.25 mg or 0.5 mg (2 mg/3 mL) pen injector 0.25 mg subcut WEEKLY Rx Instructions: for 4 weeks valacyclovir [Valtrex] 500 mg tablet 500 mg PO DAILY spironolactone 50 mg tablet 100 mg PO DAILY Qty: 180 0RF amitriptyline 10 mg tablet 10 mg PO QHS Qty: 30 0RF fluticasone propionate [Flonase Allergy Relief] 50 mcg/actuation spray,suspension 1 spray intranasal Q12H Qty: 16 0RF Rx Instructions: administer into each nostril alprazolam 0.5 mg tablet 0.5 mg PO TID PRN (Reason: anxiety) Qty: 90 0RF levothyroxine 150 mcg tablet See Rx Instructions .ROUTE .COMPLEX Qty: 90 0RF Dose Instruction: TAKE 1 TABLET BY MOUTH DAILY Rx Instructions: TAKE 1 TABLET BY MOUTH DAILY Follow-up/Referrals: Ambar Berrios MD [Primary Care Provider, Family Practice] Stand Alone Forms: Work/School Release IP Time of Disposition: 13:17
--- OUTSIDE RECORDS SUMMARY | 2025-04-15 13:47 | XMS_ITS | Encounter Summary ---
Author Organization [facility] Address [address] [place] [address] Care Team Providers Care Retail Marketing Manager Name Role Phone Ambar Berrios MD Primary Care Provider [phone] Encounter Details Date Type Department Care Team (Latest Contact Info) Description 04/28/2004 Outpatient Historical [facility], [address] [place] [address] [address] SCREENING NEC (Primary Dx) Social History Tobacco Use Types Packs/Day Years Used Date Smoking Tobacco: Never Assessed Comments Unknown Sex and Gender Information Value Date Recorded Sex Assigned at Not on file Legal Sex Female 5:10 AM WELDER Gender Identity Not on file Sexual Orientation Not on file documented as of this encounter Plan of Treatment Not on file documented as of this encounter Visit Diagnoses Diagnosis Other screening- Primary Other specified screening documented in this encounter Care Teams Retail Marketing Manager Relationship Specialty Start Date End Date Ambar Berrios MD [address] [place] [id number] PCP - General Family Practice 01/21/21 documented as of this encounter
--- OUTSIDE RECORDS SUMMARY | 2025-04-15 13:47 | XMS_ITS | Encounter Summary ---
Author Organization [facility] Address [address] [place] [address] Care Team Providers Care In Store Marketer Name Role Phone Ambar Berrios MD Primary Care Provider [phone] Encounter Details Date Type Department Care Team (Latest Contact Info) Description 08/28/2004 Outpatient Historical [facility], [address] [place] DO [address] [place] [id number] HYPOTHYROIDISM NOS (Primary Dx) Social History Tobacco Use Types Packs/Day Years Used Date Smoking Tobacco: Never Assessed Comments Unknown Sex and Gender Information Value Date Recorded Sex Assigned at Not on file Legal Sex Female 5:10 AM AUTO BODY SHOP MANAGER Gender Identity Not on file Sexual Orientation Not on file documented as of this encounter Plan of Treatment Not on file documented as of this encounter Procedures Procedure Name Priority Date/Time Associated Diagnosis Comments TSH REFLEXIVE Routine 08/28/2004 5:21 PM AUTO BODY SHOP MANAGER documented in this encounter Results * TSH REFLEXIVE (08/28/2004 5:21 PM AUTO BODY SHOP MANAGER) TSH 1.45 0.27 - 4.20 uU/mL INTERFACE SYSTEM 08/28/2004 5:21 PM AUTO BODY SHOP MANAGER Mera Stewart DO CHEMISTRY ORDERABLES Final Res ult INTERFACE SYSTEM Refer to clinic/hospital department documented in this encounter Visit Diagnoses Diagnosis Unspecified hypothyroidism- Primary documented in this encounter Care Teams In Store Marketer Relationship Specialty Start Date End Date Ambar Berrios MD [address] [place] [phone] PCP - General Family Practice 01/21/21 documented as of this encounter
--- OUTSIDE RECORDS SUMMARY | 2025-04-15 13:47 | XMS_ITS | Encounter Summary ---
Author Organization [facility] Address [address] [place] [address] Care Team Providers Care Laundry Machine Mechanic Name Role Phone Ambar Berrios MD Primary Care Provider [phone] Encounter Details Date Type Department Care Team (Late st Contact Info) Description 07/14/2001 Outpatient Historical [facility] PATIENT IN A BED Norma Naranjo MD [address] [place] [address] [address] [address] PILONIDAL CYST W/O ABSC (Primary Dx) Social History Tobacco Use Types Packs/Day Years Used Date Smoking Tobacco: Never Assessed Comments Unknown Sex and Gender Information Value Date Recorded Sex Assigned at Not on file Legal Sex Female 5:10 AM COMMAND AND CONTROL SPECIALIST Gender Identity Not on file Sexual Orientation Not on file documented as of this encounter Plan of Treatment Not on file documented as of this encounter Visit Diagnoses Diagnosis Pilonidal cyst without mention of abscess- Primary documented in this encounter Care Teams Laundry Machine Mechanic Relationship Specialty Start Date End Date Ambar Berrios MD [address] [place] [id number] PCP - General Family Practice 01/21/21 documented as of this encounter
--- OUTSIDE RECORDS SUMMARY | 2025-04-15 13:47 | XMS_ITS | Encounter Summary ---
Author Organization [facility] Address [address] [place] [address] Care Team Providers Care Pattern Marker Name Role Phone Ambar Berrios MD Primary Care Provider [phone] Encounter Details Date Type Department Care Team (Latest Contact Info) Description 07/03/2004 Outpatient Historical HIS [facility] Mera Motley, DO [id number] [place] [address] ESSEN HYPERTEN-ANTEPART (Primary Dx) Social History Tobacco Use Types Packs/Day Years Used Date Smoking Tobacco: Never Assessed Comments Unknown Sex and Gender Information Value Date Recorded Sex Assigned at Not on file Legal Sex Female 5:10 AM MEN'S CUSTOM HAIR PIECE CONSULTANT Gender Identity Not on file Sexual Orientation Not on file documented as of this encounter Plan of Treatment Not on file documented as of this encounter Procedures Procedure Name Priority Date/Time Associated Diagnosis Comments CREATININE CLEARANCE, SERUM Routine 07/03/2004 12:05 PM MEN'S CUSTOM HAIR PIECE CONSULTANT CREATININE, 24 HR URINE Routine 07/03/2004 12:05 PM MEN'S CUSTOM HAIR PIECE CONSULTANT PROTEIN, 24 HR URINE Routine 07/03/2004 12:05 PM MEN'S CUSTOM HAIR PIECE CONSULTANT CREATININE CLEARANCE Routine 07/03/2004 12:05 PM MEN'S CUSTOM HAIR PIECE CONSULTANT documented in this encounter Results * (ABNORMAL) CREATININE CLEARANCE (07/03/2004 12:05 PM MEN'S CUSTOM HAIR PIECE CONSULTANT) CREATININE CLEARANCE 149(H) 75 - 125 mL/min/1.7 sq meter INTERFACE SYSTEM Comment:Creatinine Clearance result is not corrected for body surface area. 07/03/2004 12:0 5 PM MEN'S CUSTOM HAIR PIECE CONSULTANT us Mera Cagle Dioneisma DO URINE ORDERABLES Final Result Performing Organization Address [facility] Phone Number INTERFACE SYSTEM Refer to clinic/hospital department * PROTEIN, 24 HR URINE (07/03/2004 12:05 PM MEN'S CUSTOM HAIR PIECE CONSULTANT) PROTEIN CONCENTRATION 7.0 mg/dL INTERFACE SYSTEM PROTEIN TOTAL, 24 HR URINE 0.11 0.00 - 0.15 g/24 hrs INTERFACE SYSTEM 07/03/2004 12:0 5 PM MEN'S CUSTOM HAIR PIECE CONSULTANT us Mera Cagle Dioneisma DO URINE ORDERABLES Final Result Performing Organization Address [facility] Phone Number INTERFACE SYSTEM Refer to clinic/hospital department * CREATININE, 24 HR URINE (07/03/2004 12:05 PM MEN'S CUSTOM HAIR PIECE CONSULTANT) START DATE 24 HR UR :[id number] :[id number] INTERFACE SYSTEM START TIME 24 HR UR 1145 time INTERFACE SYSTEM LENGTH OF COLLECTION 24 23 - 25 hr INTERFACE SYSTEM VOLUME, 24 HR URINE 1575 mL INTERFACE SYSTEM CREATININE, 24 HR URINE 1.1 0.6 - 1.8 g/24 hrs INTERFACE SYSTEM 07/03/2004 12:0 5 PM MEN'S CUSTOM HAIR PIECE CONSULTANT Result [facility] us Mera Cagle Dioneisma URINE ORDERABLES Final Result Performing Organization Address [facility] Phone Number INTERFACE SYSTEM Refer to clinic/hospital department * CREATININE CLEARANCE, SERUM (07/03/2004 12:05 PM MEN'S CUSTOM HAIR PIECE CONSULTANT) CREATININE 0.5 0.4 - 1.2 mg/dL INTERFACE SYSTEM 07/03/2004 12:0 5 PM MEN'S CUSTOM HAIR PIECE CONSULTANT Result [facility] Mera Gurjit Stewart DO CHEMISTRY ORDERABLES Final Res ult Performing Organization Address [facility] Phone Number INTERFACE SYSTEM Refer to clinic/hospital department documented in this encounter Visit Diagnoses Diagnosis Benign essential hypertension antepartum- Primary documented in this encounter Care Teams Pattern Marker Relationship Specialty Start Date End Date Ambar Berrios MD [address] [place] [address] PCP - General Family Practice 01/21/21 documented as of this encounter
--- OUTSIDE RECORDS SUMMARY | 2025-04-15 13:47 | XMS_ITS | Encounter Summary ---
Author Organization [facility] Address [address] [place] [address] Care Team Providers Care Production Artist Name Role Phone Ambar Berrios MD Primary Care Provider [phone] Encounter Details Date Type Department Care Team (Latest Contact Info) Description 07/15/2004 Inpatient Historical HIS PATIENT [id number] [facility] [address] [facility] [place] [address] PREG COMPL NEC-DELIVERED (Primary Dx) Social History Tobacco Use Types Packs/Day Years Used Date Smoking Tobacco: Never Assessed Comments Unknown Sex and Gender Information Value Date Recorded Sex Assigned at Not on file Legal Sex Female 5:10 AM ALMOND HULLER Gender Identity Not on file Sexual Orientation Not on file documented as of this encounter Plan of Treatment Not on file documented as of this encounter Procedures Procedure Name Priority Date/Time Associated Diagnosis Comments BLOOD GAS CORD ARTERIAL Routine 07/15/2004 11:29 PM ALMOND HULLER CBC WITH DIFFERENTIAL Routine 07/15/2004 1:01 PM ALMOND HULLER CBC WITH DIFFERENTIAL Routine 07/15/2004 1:01 PM ALMOND HULLER ALT Routine 07/15/2004 1:01 PM ALMOND HULLER AST Routine 07/15/2004 1:01 PM ALMOND HULLER LACTATE DEHYDROGENASE Routine 07/15/2004 1:01 PM ALMOND HULLER documented in this encounter Results * (ABNORMAL) BLOOD GAS CORD ARTERIAL (07/15/2004 11:29 PM ALMOND HULLER) PH CORD ARTERIAL 7.25 7.14 - 7.40 INTERFACE SYSTEM PCO2 CORD ARTERIAL 54 32 - 69 mm Hg INTERFACE SYSTEM PO2 CORD ARTERIAL 11 8 - 33 mm Hg INTERFACE SYSTEM O2 SAT EST CORD ARTERIAL 13 5 - 59 % INTERFACE SYSTEM HCO3 CORD ARTERIAL 23 16 - 27 mmol/L INTERFACE SYSTEM BASE EXCESS CORD ARTERIAL -4.4 -7.6 - 1.3 mmol/L INTERFACE SYSTEM HEMOGLOBIN CORD ARTERIAL 13.8(L) 14.5 - 22.5 g/dL INTERFACE SYSTEM 07/15/2004 11:2 9 PM ALMOND HULLER Mera Stewart DO ABG ORDERABLES Final Result Performing Organization Address [facility] Phone Number INTERFACE SYSTEM Refer to clinic/hospital department * (ABNORMAL) CBC WITH DIFFERENTIAL (07/15/2004 1:01 PM ALMOND HULLER) NEUTROPHILS 76(H) 45 - 70 % INTERFAC E SYSTEM LYMPHOCYTES 15(L) 16 - 45 % INTERFAC E SYSTEM MONOCYTES 9 3 - 13 % INTERFACE SYSTEM EOSINOPHILS 1 0 - 7 % INTERFAC E SYSTEM BASOPHILS 0 0 - 2 % INTERFACE SYSTEM NEUTROPHIL ABSOLUTE 6.67 1.90 - 7.00 K/uL INTERFACE SYSTEM LYMPHOCYTE ABSOLUTE 1.29 0.70 - 4.50 K/uL INTERFACE SYSTEM MONOCYTE ABSOLUTE 0.78 0.10 - 1.30 K/uL INTERFACE SYSTEM EOSINOPHIL ABSOLUTE 0.09 0.00 - 0.70 K/uL INTERFACE SYSTEM BASOPHILS ABSOLUTE 0.01 0.00 - 0.20 K/uL INTERFACE SYSTEM 07/15/2004 1:01 PM ALMOND HULLER [employer]grafix Terry DO HEMATOLOGY ORDERABLES Final Re sult Performing Organization Address [facility] de Phone Number INTERFACE SYSTEM Refer to clinic/hospital department * CBC WITH DIFFERENTIAL (07/15/2004 1:01 PM ALMOND HULLER) WBC 8.8 4.0 - 9.8 K/uL INTERFACE SYSTEM RBC 4.33 3.90 - 4.90 M/uL INTERFACE SYSTEM HEMOGLOBIN 11.9 11.8 - 14.8 g/dL INTERFACE SYSTEM HEMATOCRIT 36.1 35.5 - 44.0 % INTERFACE SYSTEM MCV 83.4 82.0 - 99.0 fL INTERFACE SYSTEM MCH 27.5 27.2 - 32.6 pg INTERFACE SYSTEM MCHC 33.0 31.5 - 35.5 % INTERFACE SYSTEM RDW 13.9 11.5 - 14.5 % INTERFACE SYSTEM RDW-STDEV 42.9 37.1 - 48.7 fL INTERFACE SYSTEM PLATELETS 338 140 - 350 K/uL INTERFACE SYSTEM MPV 9.6 9.3 - 12.4 fL INTERFACE SYSTEM 07/15/2004 1:01 PM ALMOND HULLER Mera Gurjit Stewart DO HEMATOLOGY ORDERABLES Final Re sult Performing Organization Address [facility] Phone Number INTERFACE SYSTEM Refer to clinic/hospital department * (ABNORMAL) LACTATE DEHYDROGENASE (07/15/2004 1:01 PM ALMOND HULLER) LD (LACTATE DEHYDROGENASE) 115(L) 135 - 214 U/L INTERFACE SYSTEM 07/15/2004 1:01 PM ALMOND HULLER Mera Gurjit Stewrat DO CHEMISTRY ORDERABLES Final Res ult Performing Organization Address [facility] Phone Number INTERFACE SYSTEM Refer to clinic/hospital department * (ABNORMAL) AST (07/15/2004 1:01 PM ALMOND HULLER) AST 48(H) 12 - 32 U/L INTERFAC E SYSTEM 07/15/2004 1:01 PM ALMOND HULLER Mera Gurjit Stewart DO CHEMISTRY ORDERABLES Final Res ult Performing Organization Address [facility] Phone Number INTERFACE SYSTEM Refer to clinic/hospital department * (ABNORMAL) ALT (07/15/2004 1:01 PM ALMOND HULLER) ALT 89(H) 0 - 31 U/L INTERFACE SYSTEM 07/15/2004 1:01 PM ALMOND HULLER us Mera B [place] DO CHEMISTRY ORDERABLES Final Res ult INTERFACE SYSTEM Refer to clinic/hospital department documented in this encounter Visit Diagnoses Diagnosis Other specified complication of , with delivery- Primary documented in this encounter Care Teams Production Artist Relationship Specialty Start Date End Date Ambar Berrios MD [address] [place] [id number] PCP - General Family Practice 01/21/21 documented as of this encounter
--- OUTSIDE RECORDS SUMMARY | 2025-04-15 13:47 | XMS_ITS | Encounter Summary ---
Author Organization [facility] Address [address] [place] [address] Care Team Providers Care First Coat Operator Name Role Phone Ambar Berrios MD Primary Care Provider [phone] Encounter Details Date Type Department Care Team (Latest Contact Info) Description 05/29/2004 Outpatient Historical HIS [facility] Mera Motley, DO [address] [facility] [address] [place] [address] ESSEN HYPERTEN-ANTEPART (Primary Dx) Social History Tobacco Use Types Packs/Day Years Used Date Smoking Tobacco: Never Assessed Comments Unknown Sex and Gender Information Value Date Recorded Sex Assigned at Not on file Legal Sex Female 5:10 AM CONTROL SPECIALIST Gender Identity Not on file Sexual Orientation Not on file documented as of this encounter Plan of Treatment Not on file documented as of this encounter Visit Diagnoses Diagnosis Benign essential hypertension antepartum- Primary documented in this encounter Care Teams First Coat Operator Relationship Specialty Start Date End Date Ambar Berrios MD [address] [place] [address] PCP - General Family Practice 01/21/21 documented as of this encounter
--- OUTSIDE RECORDS SUMMARY | 2025-04-15 13:47 | XMS_ITS | Encounter Summary ---
Author Organization [facility] Address [address] [place] [address] Care Team Providers Care Fleet Dispatch Manager Name Role Phone Abmar Berrios MD Primary Care Provider [phone] Encounter Details Date Type Department Care Team (Latest Contact Info) Description 04/15/2004 Outpatient Historical HIS [facility], [address] Mera [address] [address] SCREENING-DIABETES MELLITUS (Primary Dx) Social History Tobacco Use Types Packs/Day Years Used Date Smoking Tobacco: Never Assessed Comments Unknown Sex and Gender Information Value Date Recorded Sex Assigned at Not on file Legal Sex Female 5:10 AM DATA ENTRY SUPERVISOR Gender Identity Not on file Sexual Orientation Not on file documented as of this encounter Plan of Treatment Not on file documented as of this encounter Visit Diagnoses Diagnosis Screening for diabetes mellitus- Primary documented in this encounter Care Teams Fleet Dispatch Manager Relationship Specialty Start Date End Date Ambar Berrios MD [address] [place] [phone] PCP - General Family Practice 01/21/21 documented as of this encounter
--- OUTSIDE RECORDS SUMMARY | 2025-04-15 13:47 | XMS_ITS | Clinical Summary ---
Author Organization [facility] Address [address] [place] [address] Phone Care Team Providers Care Crew Person Name Role Phone Ambar Berrios MD Primary Care Provider [phone] Allergies Active Allergy Reactions Criticality Noted Date Comments Cefaclor Hives High 09/02/2011 Medications sertraline (ZOLOFT) 50 mg tablet Take 50 mg by mouth daily. Active THYROID,PORK (ARMOUR THYROID ORAL) Take 1 Gram by mouth daily. Active nitrofurantoin (MACROBID) 100 mg capsule 1po bid x 7 days. 14 Capsule 8 Active levothyroxine 200 mcg tablet Take 150 mcg by mouth daily in the morning. hypothyroidism Active spironolactone (ALDACTONE) 50 mg tablet Take 50 mg by mouth daily. diuresis Active linaCLOtide (LINZESS) 72 mcg Capsule capsule Take 72 mcg by mouth daily before breakfast. constipation Active liothyronine (CYTOMEL) 25 mcg Tablet Take 25 mcg by mouth 2 times daily. 2tab each time Active dog405/iron/fo lic/dha ( FORMULA-DHA ORAL) Take by mouth. Activ e polyethylene glycol (MIRALAX) 17 gram Powder in Packet Take 17 Grams by mouth daily. Active lidocaine (XYLOCAINE) 5 % Ointment Apply to affected area every 3 hours as needed for Pain. 1/2 inch topically to anal or affected area as needed 30 Gram 2 1 Active levothyroxine sodium (UNITHROID ORAL) Take by mouth. PM Ac tive CARTILAGE-RICARDO AGEN II-HYALURON ORAL Take by mouth. Activ e phentermine HCl (PHENTERMINE ORAL) Take by mouth daily. AM Active psyllium seed, with sugar, (FIBER ORAL) Take by mouth. Ac tive L. acidophilus/L. rhamnosus (PROBIOTIC ORAL) Take by mouth. Activ e Active Problems Problem Noted Date Diagnosed Date S/P abdominal hysterectomy 11/11/2020 s/p c section (09/01) 09/02/2011 Encounters Date Type Department Care Team Description 04/10/2025 External Device Data STL ABSTRACTION Provider, Abstract 04/10/2025 External Device Data STL ABSTRACTION Provider, Abstract 04/02/2025 External Device Data STL ABSTRACTION Provider, Abstract 03/23/2025 8:37 AM CDT - 03/23/2025 11:59 PM CDT Hospital Encounter [facility] [address] [address] Praful Ramos MD Discharge Disposition: Home or Self Care 03/19/2025 External Device Data STL ABSTRACTION Provider, Abstract 03/19/2025 External Device Data STL ABSTRACTION Provider, Abstract 03/19/2025 External Device Data STL ABSTRACTION Provider, Abstract 03/14/2025 5:05 PM CDT - 03/14/2025 11:59 PM CDT Hospital Encounter [facility] [address] [address] Ambar Berrios MD Discharge Disposition: Home or Self Care 03/04/2025 Transcribe Orders Central Test Scheduling [address] [place] [phone] Ambar Berrios MD Head ache (Primary Dx) from Last 3 Months Immunizations Immunization Administration Dates Next Due (ADACEL/BOOSTRIX)(10 YR UP) TDAP VACCINE, 0.5ML, IM 09/05/2011 Family History Medical History Relation Name Comments Cancer Father Asthma Mother Hypertension Mother Osteoporosis Mother Relation Name Status Comments Father Alive Mother Alive Social History Tobacco Use Types Packs/Day Years Used Date Smoking Tobacco: Heavy Smoker Cigarettes 0.5 10 Smokeless Tobacco: Never Tobacco Cessation:Counseling Given: No Alcohol Use Standard Drinks/Week Comments No 0 (1 standard drink = 0.6 oz pur e alcohol) Comments No Sex and Gender Information Value Date Recorded Sex Assigned at Not on file Legal Sex Female 5:10 AM PROTOTYPE CARPENTER Gender Identity Not on file Sexual Orientation Not on file Occupation Industry Job Start Date Job End Date Not on file Not on file Not on file Not on file Last Filed Vital Signs Vital Sign Reading Time Taken Comments Blood Pressure 103/67 11/04/2021 5:34 PM CDT Pulse 77 11/04/2021 5:34 PM CDT Temperature 36.1 C (97 F) 11/04/2021 5:34 PM CDT Respiratory Rate 16 11/04/2021 5:34 PM CDT Oxygen Saturation 100% 11/04/2021 5:34 PM CDT Inhaled Oxygen Concentration - - Weight 64.4 kg (141 lb 14.4 oz) 022 10:16 AM CDT Height 162.6 cm (5' 4) 11/04/2021 10:1 6 AM CDT Body Mass Index 24.36 11/04/2021 10:16 AM CDT Plan of Treatment Health Maintenance Due Date Last Done Comments HEPATITIS B VACCINES (1 of 3 - 19+ 3-dose series) 09/11 HPV VACCINES (1 - 3-dose SCDM series) 2009 DTAP/TDAP/TD VACCINES (2 - Td or Tdap) 09/04/2021 BREAST CANCER SCREENING 2022 INFLUENZA VACCINE (#1) 2025 04/12/2011 Medical Devices Implanted Type Area Packer Device Identifier Shelf Expiration Date Model / Serial / Lot Barrier Seprafilm [id number] 4301-02 - [id number] Implanted:Qty : 1 on 09/02/2011 by Edward Garcia MD at [facility] Adhesion Barrier Bilateral : Abdomen GENZYME- BIOSURG 4301-02 / [id number] / [id number] Barrier Seprafilm 5x6in [id number] - [id number] Implanted:Qty : 1 on 11/11/2020 by Edward Garcia MD at [facility] Adhesion Barrier N/A: Abdomen [employer] [id number] 05/24/2023 [id number] / / [id number] Hemostatic Surgifoam Sz12-7 1972 - [id number] Implanted:Qty : 1 on 01/22/2021 by Sharmila Morales MD at [facility] Hemostatic N/A: Perianal [employer] [id number] 07/16/20241971 / / [id number] Imp Breast Memorygel Rnd Hp 400ml [id number] - [id number] Implanted:Qty : 1 on 11/04/2021 by Victorino Atwood MD at [facility] Mammary Right: Breast MENTOR ARUNA 07/31/2026 [id number] / / [id number] Description:IMPLANT PROVIDED BY DR. ATWOOD Imp Breast Memorygel Rnd Hp 400ml [id number] - [id number] Implanted:Qty : 1 on 11/04/2021 by Victorino Atwood MD at [facility] Mammary Left: Breast MENTOR ARUNA 05/01/2026 [id number] / / [id number] Description:IMPLANT PROVIDED BY DR. ATWOOD Procedures Procedure Name Priority Date/Time Associated Diagnosis Comments MRI BRAIN WO CONTRAST Routine 03/14/2025 5:48 PM CDT Head ache from Last 3 Months Results * MRI BRAIN WO CONTRAST (03/14/2025 5:48 PM CDT) Anatomical Region Laterality Modality Head Magnetic Resonan ce 03/14/2025 5:49 PM CDT Impressions 03/15/2025 7:24 AM CDT IMPRESSION: 1. No acute intracranial abnormality. 2. There are a few bifrontal foci of T2/FLAIR white matter hyperintensity which are nonspecific but can be seen in the setting of migraine headaches as well as chronic small vessel disease if the patient has risk factors. DICTATION LOCATION: Location 1 - [facility] Narrative 03/15/2025 7:24 AM CDT EXAMINATION: MRI BRAIN WO CONTRAST HISTORY: Headache, chronic, new features or increased frequency. Head ache TECHNIQUE: MRI of the brain was performed without contrast according to standard protocol. FINDINGS: No prior study is available for comparison at the time of this dictation. No evidence of acute or chronic hemorrhage is identified. No evidence of acute cerebral infarction is seen. The ventricles are of normal size, shape, and morphology. No mass effect or midline shift is seen. There are one or two scattered cerebral hemispheric white matter FLAIR hyperintensities which are a nonspecific finding. The corpus callosum and sella appear normal. The posterior fossa, brainstem, and craniocervical junction appear normal. Other than patchy mastoid effusions, the visible portions of the orbits, paranasal sinuses, and mastoids appear normal. Normal flow voids are demonstrated in the carotid arteries and basilar artery. The calvarium and visualized cervical spine appear normal. Procedure Note Michael Centeno MD - 03/15/2025 EXAMINATION: MRI BRAIN WO CONTRAST HISTORY: Headache, chronic, new features or increased frequency. Head ache TECHNIQUE: MRI of the brain was performed without contrast according to standard protocol. FINDINGS: No prior study is available for comparison at the time of this dictation. No evidence of acute or chronic hemorrhage is identified. No evidence of acute cerebral infarction is seen. The ventricles are of normal size, shape, and morphology. No mass effect or midline shift is seen. There are one or two scattered cerebral hemispheric white matter FLAIR hyperintensities which are a nonspecific finding. The corpus callosum and sella appear normal. The posterior fossa, brainstem, and craniocervical junction appear normal. Other than patchy mastoid effusions, the visible portions of the orbits, paranasal sinuses, and mastoids appear normal. Normal flow voids are demonstrated in the carotid arteries and basilar artery. The calvarium and visualized cervical spine appear normal. IMPRESSION: 1. No acute intracranial abnormality. 2. There are a few bifrontal foci of T2/FLAIR white matter hyperintensity which are nonspecific but can be seen in the setting of migraine headaches as well as chronic small vessel disease if the patient has risk factors. DICTATION LOCATION: Location 1 - [facility] Ambar Berrios MD MR ORDERABLES Final Result from Last 3 Months Insurance [employer] Advance Directives For more information, please contact: [phone] * Full Code (Latest Code Status on File) Date Activated Date Inactivated Comments 11/04/2021 3:41 PM 11/04/2021 7:43 PM * Full Code Date Activated Date Inactivated Comments 11/04/2021 10:53 AM 11/04/2021 3:41 PM * Full Code Date Activated Date Inactivated Comments 01/22/2021 12:54 PM 01/22/2021 5:18 PM * Full Code Date Activated Date Inactivated Comments 01/22/2021 10:40 AM 01/22/2021 12:54 PM * Full Code Date Activated Date Inactivated Comments 11/11/2020 12:09 PM 11/12/2020 4:08 PM Care Teams Crew Person Relationship Specialty Start Date End Date Ambar Berrios MD [facility] [place] [address] PCP - General Family Practice 01/21/21
--- OUTSIDE RECORDS SUMMARY | 2025-04-15 13:47 | XMS_ITS | Encounter Summary ---
Author Organization [facility] Address [address] [place] [address] Care Team Providers Care Foundry Manager Name Role Phone Ambar Berrios MD Primary Care Provider [phone] Encounter Details Date Type Department Care Team (Latest Contact Info) Description 08/28/2004 Outpatient Historical [facility], [address] [place] [address] [address] DYSPLASIA OF CERVIX (Primary Dx) Social History Tobacco Use Types Packs/Day Years Used Date Smoking Tobacco: Never Assessed Comments Unknown Sex and Gender Information Value Date Recorded Sex Assigned at Not on file Legal Sex Female 5:10 AM DIAMOND DRILLER HELPER Gender Identity Not on file Sexual Orientation Not on file documented as of this encounter Plan of Treatment Not on file documented as of this encounter Visit Diagnoses Diagnosis Dysplasia of cervix (uteri)- Primary documented in this encounter Care Teams Foundry Manager Relationship Specialty Start Date End Date Ambar Berrios MD [address] [place] [address] PCP - General Family Practice 01/21/21 documented as of this encounter
--- OUTSIDE RECORDS SUMMARY | 2025-04-15 13:47 | XMS_ITS | Encounter Summary ---
Author Organization [facility] Address [address] [place] [address] Care Team Providers Care Catering Sales Manager Name Role Phone Ambar Berrios MD Primary Care Provider Encounter Details Date Type Department Care Team (Latest Contact Info) Description 09/16/2004 Outpatient Historical [facility] Rl Yang MD [address] [facility] [place] [address] CHOLELITH W CHOLECYS NEC (Primary Dx) Social History Tobacco Use Types Packs/Day Years Used Date Smoking Tobacco: Never Assessed Comments Unknown Sex and Gender Information Value Date Recorded Sex Assigned at Not on file Legal Sex Female 5:10 AM HELMINTHOLOGY TEACHER Gender Identity Not on file Sexual Orientation Not on file documented as of this encounter Plan of Treatment Not on file documented as of this encounter Procedures Procedure Name Priority Date/Time Associated Diagnosis Comments POC , URINE Routine 09/16/2004 11:24 AM CDT HEMOGLOBIN AND HEMATOCRIT Routine 09/16/2004 10:46 AM CDT documented in this encounter Results * POC , URINE (09/16/2004 11:24 AM CDT) HCG QUAL URINE Negative Negative INTER FACE SYSTEM SPECIFIC GRAVITY UA 1.020 1.001 - 1.035 INTERFACE SYSTEM 09/16/2004 11:2 4 AM CDT Rl Yang MD POINT OF CARE TESTING Final R esult Performing Organization Address City/State/[facility] Co de Phone Number INTERFACE SYSTEM Refer to clinic/hospital department * HEMOGLOBIN AND HEMATOCRIT (09/16/2004 10:46 AM CDT) HEMOGLOBIN 11.8 11.8 - 14.8 g/dL INTERFACE SYSTEM HEMATOCRIT 37.9 35.5 - 44.0 % INTERFACE SYSTEM 09/16/2004 10:4 6 AM CDT us Rl Yang MD HEMATOLOGY ORDERABLES Final R esult Performing Organization Address City/[facility] Co de Phone Number INTERFACE SYSTEM Refer to clinic/hospital department documented in this encounter Visit Diagnoses Diagnosis Calculus of gallbladder with other cholecystitis, without mention of obstruction- Primary documented in this encounter Care Teams Catering Sales Manager Relationship Specialty Start Date End Date Ambar Berrios MD [address] [place] [phone] PCP - General Family Practice 01/21/21 documented as of this encounter
--- OUTSIDE RECORDS SUMMARY | 2025-04-15 13:47 | XMS_ITS | Encounter Summary ---
Author Organization [facility] Address 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
--- OUTSIDE RECORDS SUMMARY | 2025-04-15 13:47 | XMS_ITS | Encounter Summary ---
Author Organization [facility] Address [address] [place] [address] Care Team Providers Care It Applications Developer Name Role Phone Ambar Berrios MD Primary Care Provider [phone] Encounter Details Date Type Department Care Team (Latest Contact Info) Description 05/27/2004 Outpatient Historical [facility], [address] [facility] [place] [address] [place] [address] SUPERVIS NORMAL 1ST PREG (Primary Dx) Social History Tobacco Use Types Packs/Day Years Used Date Smoking Tobacco: Never Assessed Comments Unknown Sex and Gender Information Value Date Recorded Sex Assigned at Not on file Legal Sex Female 5:10 AM COSTING MANAGER Gender Identity Not on file Sexual Orientation Not on file documented as of this encounter Plan of Treatment Not on file documented as of this encounter Visit Diagnoses Diagnosis Supervision of normal first - Primary documented in this encounter Care Teams It Applications Developer Relationship Specialty Start Date End Date Ambar Berrios MD [address] [place] [address] PCP - General Family Practice 01/21/21 documented as of this encounter
--- OUTSIDE RECORDS SUMMARY | 2025-04-15 13:47 | XMS_ITS | Encounter Summary ---
Author Organization [facility] Address [address] [place] [address] Care Team Providers Care Marble Cutter Name Role Phone Ambar Berrios MD Primary Care Provider [phone] Encounter Details Date Type Department Care Team (Latest Contact Info) Description 12/26/2003 Outpatient Historical [facility], [address] [place] [address] [address] VAGINITIS NOS (Primary Dx) Social History Tobacco Use Types Packs/Day Years Used Date Smoking Tobacco: Never Assessed Comments Unknown Sex and Gender Information Value Date Recorded Sex Assigned at Not on file Legal Sex Female 5:10 AM BEHAVIOR SPECIALIST Gender Identity Not on file Sexual Orientation Not on file documented as of this encounter Plan of Treatment Not on file documented as of this encounter Visit Diagnoses Diagnosis Vaginitis and vulvovaginitis, unspecified- Primary documented in this encounter Care Teams Marble Cutter Relationship Specialty Start Date End Date Ambar Berrios MD [address] [place] [address] PCP - General Family Practice 01/21/21 documented as of this encounter
--- OUTSIDE RECORDS SUMMARY | 2025-04-15 13:47 | XMS_ITS | Encounter Summary ---
Author Organization [employer] Address [address] [place] [address] Care Team Providers Care Park Interpretive Specialist Name Role Phone Ambar Berrios MD Primary Care Provider Encounter Details Date Type Department Care Team (Latest Contact Info) Description 01/28/2004 Outpatient Historical [facility], [address] Praful Jones MD [address] [facility]. 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
--- OUTSIDE RECORDS SUMMARY | 2025-04-15 13:47 | XMS_ITS | Encounter Summary ---
Author Organization [facility] Address [address] [place] [address] Care Team Providers Care County Director Welfare Name Role Phone Ambar Berrios MD Primary Care Provider [phone] Encounter Details Date Type Department Care Team (Latest Contact Info) Description 06/03/2004 Outpatient Historical [facility], [address] [place] [address] [address] SCREENING NEC (Primary Dx) Social History Tobacco Use Types Packs/Day Years Used Date Smoking Tobacco: Never Assessed Comments Unknown Sex and Gender Information Value Date Recorded Sex Assigned at Not on file Legal Sex Female 5:10 AM FAMILY COACH Gender Identity Not on file Sexual Orientation Not on file documented as of this encounter Plan of Treatment Not on file documented as of this encounter Visit Diagnoses Diagnosis Other screening- Primary Other specified screening documented in this encounter Care Teams County Director Welfare Relationship Specialty Start Date End Date Ambar Berrios MD [address] [place] [phone] PCP - General Family Practice 01/21/21 documented as of this encounter
--- OUTSIDE RECORDS SUMMARY | 2025-04-15 13:47 | XMS_ITS | Encounter Summary ---
Author Organization [facility] Address [address] [place] [address] Care Team Providers Care Glove Stitcher Name Role Phone Ambar Berrios MD Primary Care Provider [phone] Encounter Details Date Type Department Care Team (Latest Contact Info) Description 06/25/2004 Outpatient Historical [facility], [address] [place] [address] [address] SCREENING NEC (Primary Dx) Social History Tobacco Use Types Packs/Day Years Used Date Smoking Tobacco: Never Assessed Comments Unknown Sex and Gender Information Value Date Recorded Sex Assigned at Not on file Legal Sex Female 5:10 AM MONUMENT MASON Gender Identity Not on file Sexual Orientation Not on file documented as of this encounter Plan of Treatment Not on file documented as of this encounter Procedures Procedure Name Priority Date/Time Associated Diagnosis Comments HEPATIC FUNCTION PANEL Routine 06/25/2004 6:26 PM MONUMENT MASON documented in this encounter Results * (ABNORMAL) HEPATIC FUNCTION PANEL (06/25/2004 6:26 PM MONUMENT MASON) AST 23 12 - 32 U/L INTERFACE SYSTEM ALKALINE PHOSPHATASE 317(H) 35 - 104 U/L INTERFACE SYSTEM BILIRUBIN TOTAL 0.2 0.2 - 1.0 mg/dL INTERFACE SYSTEM ALBUMIN 3.5 3.4 - 4.8 g/dL INTERFACE SYSTEM TOTAL PROTEIN 7.2 6.3 - 8.6 g/dL INTERFACE SYSTEM Comment: Testing was performed on Serum. Specimen of choice is Cav[place] Heparinized Plasma. Serum TP Ref. Range: 3 years - 150 years 6.0 - 8.3 g/dL 1 year - 3 years 5.6 - 7.5 g/dL 7 days - 1 year 4.7 - 7.3 g/dL 0 days - 7 days 4.4 - 7.6 g/dL ALT 39(H) 0 - 31 U/L INTERFACE SYSTEM BILIRUBIN DIRECT 0.1 0.0 - 0.3 mg/dL INTERFACE SYSTEM 06/25/2004 6:26 PM MONUMENT MASON Mera Stewart DO CHEMISTRY ORDERABLES Final Res ult INTERFACE SYSTEM Refer to clinic/hospital department documented in this encounter Visit Diagnoses Diagnosis Other screening- Primary Other specified screening documented in this encounter Care Teams Glove Stitcher Relationship Specialty Start Date End Date Ambar Berrios MD [address] [place] [address] PCP - General Family Practice 01/21/21 documented as of this encounter
--- OUTSIDE RECORDS SUMMARY | 2025-04-15 13:47 | XMS_ITS | Encounter Summary ---
Author Organization [facility] Address [address] [place] [address] Care Team Providers Care Cotton Broker Name Role Phone Ambar Berrios MD Primary Care Provider [phone] Encounter Details Date Type Department Care Team (Latest Contact Info) Description 05/25/2004 Outpatient Historical [facility], [address] [place] [address] [address] ACQUIRED HYPOTHYROID NEC (Primary Dx) Social History Tobacco Use Types Packs/Day Years Used Date Smoking Tobacco: Never Assessed Comments Unknown Sex and Gender Information Value Date Recorded Sex Assigned at Not on file Legal Sex Female 5:10 AM APRN Gender Identity Not on file Sexual Orientation Not on file documented as of this encounter Plan of Treatment Not on file documented as of this encounter Visit Diagnoses Diagnosis Other specified acquired hypothyroidism- Primary documented in this encounter Care Teams Cotton Broker Relationship Specialty Start Date End Date Ambar Berrios MD [address] [place] [phone] PCP - General Family Practice 01/21/21 documented as of this encounter
--- OUTSIDE RECORDS SUMMARY | 2025-04-15 13:47 | XMS_ITS | Encounter Summary ---
Author Organization [facility] Address [address] [place] [address] Care Team Providers Care Physician Assistant Primary Care Name Role Phone Ambar Berrios MD Primary Care Provider [phone] Encounter Details Date Type Department Care Team (Late st Contact Info) Description 05/26/2004 Outpatient Historical [facility] [place], DO [facility] [address] [place] [address] ABNORMAL LIVER FUNCTION STUDY (Primary Dx) Social History Tobacco Use Types Packs/Day Years Used Date Smoking Tobacco: Never Assessed Comments Unknown Sex and Gender Information Value Date Recorded Sex Assigned at Not on file Legal Sex Female 5: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
--- OUTSIDE RECORDS SUMMARY | 2025-04-15 13:47 | XMS_ITS | Encounter Summary ---
Author Organization [facility] Address [address] [place] [address] Care Team Providers Care Nutrition Aides Teacher Name Role Phone Ambar Berrios MD Primary Care Provider [phone] Encounter Details Date Type Department Care Team (Latest Contact Info) Description 03/17/2004 Outpatient Historical [facility], [address] [place] [address] [address] HYPOTHYROIDISM NOS (Primary Dx) Social History Tobacco Use Types Packs/Day Years Used Date Smoking Tobacco: Never Assessed Comments Unknown Sex and Gender Information Value Date Recorded Sex Assigned at Not on file Legal Sex Female 5:10 AM SOLE STITCHER HAND Gender Identity Not on file Sexual Orientation Not on file documented as of this encounter Plan of Treatment Not on file documented as of this encounter Visit Diagnoses Diagnosis Unspecified hypothyroidism- Primary documented in this encounter Care Teams Nutrition Aides Teacher Relationship Specialty Start Date End Date Ambar Berrios MD [address] [place] [address] PCP - General Family Practice 01/21/21 documented as of this encounter
--- OUTSIDE RECORDS SUMMARY | 2025-04-15 13:47 | XMS_ITS | Encounter Summary ---
Author Organization [facility] Address [address] [place] [address] Care Team Providers Care Supervisor Pig Machine Name Role Phone Ambar Berrios MD Primary Care Provider [phone] Encounter Details Date Type Department Care Team (Latest Contact Info) Description 05/22/2004 Outpatient Historical [facility], [address] [place] [address] [address] SCREENING NEC (Primary Dx) Social History Tobacco Use Types Packs/Day Years Used Date Smoking Tobacco: Never Assessed Comments Unknown Sex and Gender Information Value Date Recorded Sex Assigned at Not on file Legal Sex Female 5:10 AM PUBLIC POLICY ASSOCIATE Gender Identity Not on file Sexual Orientation Not on file documented as of this encounter Plan of Treatment Not on file documented as of this encounter Visit Diagnoses Diagnosis Other screening- Primary Other specified screening documented in this encounter Care Teams Supervisor Pig Machine Relationship Specialty Start Date End Date Ambar Berrios MD [address] [place] [phone] PCP - General Family Practice 01/21/21 documented as of this encounter
--- OUTSIDE RECORDS SUMMARY | 2025-04-15 13:47 | XMS_ITS | Encounter Summary ---
Author Organization [facility] Address [address] [place] [address] Care Team Providers Care Bar Finish Operator Name Role Phone Ambar Berrios MD Primary Care Provider [phone] Encounter Details Date Type Department Care Team (Latest Contact Info) Description 01/01/2004 Outpatient Historical [facility], [address] Praful Jones MD [address] [facility]. [address] [address] HYPOTHYROIDISM NOS (Primary Dx) Social History Tobacco Use Types Packs/Day Years Used Date Smoking Tobacco: Never Assessed Comments Unknown Sex and Gender Information Value Date Recorded Sex Assigned at Not on file Legal Sex Female 5:10 AM PARAMEDICAL AIDE Gender Identity Not on file Sexual Orientation Not on file documented as of this encounter Plan of Treatment Not on file documented as of this encounter Visit Diagnoses Diagnosis Unspecified hypothyroidism- Primary documented in this encounter Care Teams Bar Finish Operator Relationship Specialty Start Date End Date Ambar Berrios MD [address] [place] [address] PCP - General Family Practice 01/21/21 documented as of this encounter
--- OUTSIDE RECORDS SUMMARY | 2025-04-15 13:47 | XMS_ITS | Encounter Summary ---
Author Organization [facility] Address [address] [place] [address] Care Team Providers Care Assistant Program Director Name Role Phone Ambar Berrios MD Primary Care Provider [phone] Encounter Details Date Type Department Care Team (Late st Contact Info) Description 06/19/2003 Emergency [facility] Nanette Schulz MD NO ADDRESS ON FILE Er, Authorized P NO ADDRESS ON FILE SPRAIN OF NECK (Primary Dx) Social History Tobacco Use Types Packs/Day Years Used Date Smoking Tobacco: Never Assessed Comments Unknown Sex and Gender Information Value Date Recorded Sex Assigned at Not on file Legal Sex Female 5:10 AM PRECISION DYER Gender Identity Not on file Sexual Orientation Not on file documented as of this encounter Plan of Treatment Not on file documented as of this encounter Visit Diagnoses Diagnosis Sprain of neck- Primary documented in this encounter Care Teams Assistant Program Director Relationship Specialty Start Date End Date Ambar Berrios MD [address] [place] [address] PCP - General Family Practice 01/21/21 documented as of this encounter
--- OUTSIDE RECORDS SUMMARY | 2025-04-15 13:47 | XMS_ITS | Encounter Summary ---
Author Organization [facility] Address [address] [place] [address] Care Team Providers Care Patient Accounting Representative Name Role Phone Ambar Berrios MD Primary Care Provider Encounter Details Date Type Department Care Team (Latest Contact Info) Description 05/26/2004 Outpatient Historical [facility] [place], DO [address] [facility] [address] [place] [address] PREG COMPL NEC-ANTEPART (Primary Dx) Social History Tobacco Use Types Packs/Day Years Used Date Smoking Tobacco: Never Assessed Comments Unknown Sex and Gender Information Value Date Recorded Sex Assigned at Not on file Legal Sex Female 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
--- OUTSIDE RECORDS SUMMARY | 2025-04-15 13:47 | XMS_ITS | Encounter Summary ---
Author Organization [facility] Address 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
--- OUTSIDE RECORDS SUMMARY | 2025-04-15 13:47 | XMS_ITS | Encounter Summary ---
Author Organization [facility] Address [address] [place] [address] Care Team Providers Care Heel Nailing Machine Operator Name Role Phone Ambar Berrios MD Primary Care Provider [phone] Encounter Details Date Type Department Care Team (Latest Contact Info) Description 08/01/2004 Outpatient Historical [facility], [address] Mera [place], [facility] [address] [address] HYPOTHYROIDISM NOS (Primary Dx) Social History Tobacco Use Types Packs/Day Years Used Date Smoking Tobacco: Never Assessed Comments Unknown Sex and Gender Information Value Date Recorded Sex Assigned at Not on file Legal Sex Female 5:10 AM RESEARCH PHARMACIST Gender Identity Not on file Sexual Orientation Not on file documented as of this encounter Plan of Treatment Not on file documented as of this encounter Procedures Procedure Name Priority Date/Time Associated Diagnosis Comments TSH REFLEXIVE Routine 08/01/2004 7:45 AM RESEARCH PHARMACIST CBC WITH DIFFERENTIAL Routine 08/01/2004 7:45 AM RESEARCH PHARMACIST CBC WITH DIFFERENTIAL Routine 08/01/2004 7:45 AM RESEARCH PHARMACIST T3 FREE Routine 08/01/2004 7:45 AM RESEARCH PHARMACIST T4 FREE Routine 08/01/2004 7:45 AM RESEARCH PHARMACIST HEPATIC FUNCTION PANEL Routine 08/01/2004 7:45 AM RESEARCH PHARMACIST documented in this encounter Results * T3 FREE (08/01/2004 7:45 AM RESEARCH PHARMACIST) T3 FREE 3.3 2.5 - 4.4 pg/mL INTERFACE SYSTEM 08/01/2004 7:45 AM RESEARCH PHARMACIST Mera Stewart DO CHEMISTRY ORDERABLES Final Res ult Performing Organization Address [facility] Phone Number INTERFACE SYSTEM Refer to clinic/hospital department * T4 FREE (08/01/2004 7:45 AM RESEARCH PHARMACIST) T4 FREE 1.7 0.9 - 1.7 ng/dL INTERFACE SYSTEM 08/01/2004 7:45 AM RESEARCH PHARMACIST Mera Stewart DO CHEMISTRY ORDERABLES Final Res ult Performing Organization Address [facility] Phone Number INTERFACE SYSTEM Refer to clinic/hospital department * (ABNORMAL) CBC WITH DIFFERENTIAL (08/01/2004 7:45 AM RESEARCH PHARMACIST) Pathologist [facility] NEUTROPHIL ABSOLUTE 6.21 1.90 - 7.00 K/uL INTERFACE SYSTEM LYMPHOCYTE ABSOLUTE 3.16 0.70 - 4.50 K/uL INTERFACE SYSTEM MONOCYTE ABSOLUTE 0.65 0.10 - 1.30 K/uL INTERFACE SYSTEM EOSINOPHIL ABSOLUTE 0.87(H) 0.00 - 0.70 K/uL INTERFACE SYSTEM BASOPHILS ABSOLUTE 0.00 0.00 - 0.20 K/uL INTERFACE SYSTEM NEUTROPHILS, SEG 57 45 - 70 % INT ERFACE SYSTEM LYMPHOCYTES 29 16 - 45 % INTERFAC E SYSTEM MONOCYTES 6 3 - 13 % INTERFACE SYSTEM EOSINOPHILS 8(H) 0 - 7 % INTERFAC E SYSTEM BASOPHILS 0 0 - 2 % INTERFACE SYSTEM PLATELET EST. Mod. Increased(A ) Normal INTERFACE SYSTEM ANISOCYTOSIS Slight INTERFA CE SYSTEM POLYCHROMASIA Slight INTERF CANDICE SYSTEM GIANT PLATELETS Present INTE RFACE SYSTEM REVIEWED ON SMEAR Plt OK by Smear Rev. INTERFACE SYSTEM 08/01/2004 7:45 AM RESEARCH PHARMACIST Mera Gurjit Stewart DO HEMATOLOGY ORDERABLES Final Re sult Performing Organization Address [facility] Phone Number INTERFACE SYSTEM Refer to clinic/hospital department * (ABNORMAL) CBC WITH DIFFERENTIAL (08/01/2004 7:45 AM RESEARCH PHARMACIST) WBC 10.9(H) 4.0 - 9.8 K/uL INTERFACE SYSTEM RBC 4.35 3.90 - 4.90 M/uL INTERFACE SYSTEM HEMOGLOBIN 11.3(L) 11.8 - 14.8 g/dL INTERFACE SYSTEM HEMATOCRIT 35.9 35.5 - 44.0 % INTERFACE SYSTEM MCV 82.5 82.0 - 99.0 fL INTERFACE SYSTEM MCH 26.0(L) 27.2 - 32.6 pg INTERFACE SYSTEM MCHC 31.5 31.5 - 35.5 % INTERFACE SYSTEM RDW 13.2 11.5 - 14.5 % INTERFACE SYSTEM RDW-STDEV 40.0 37.1 - 48.7 fL INTERFACE SYSTEM PLATELETS 694(H) 140 - 350 K/uL INTERFACE SYSTEM MPV 9.8 9.3 - 12.4 fL INTERFACE SYSTEM 08/01/2004 7:45 AM RESEARCH PHARMACIST Mera Gurjit Stewart DO HEMATOLOGY ORDERABLES Final Re sult Performing Organization Address [facility] Phone Number INTERFACE SYSTEM Refer to clinic/hospital department * (ABNORMAL) TSH REFLEXIVE (08/01/2004 7:45 AM RESEARCH PHARMACIST) Pathologist [facility] TSH 0.20(L) 0.27 - 4.20 uU/mL INTERFACE SYSTEM 08/01/2004 7:45 AM RESEARCH PHARMACIST Mera Stewart DO CHEMISTRY ORDERABLES Final Res ult Performing Organization Address [facility] Phone Number INTERFACE SYSTEM Refer to clinic/hospital department * (ABNORMAL) HEPATIC FUNCTION PANEL (08/01/2004 7:45 AM RESEARCH PHARMACIST) AST 25 12 - 32 U/L INTERFACE SYSTEM ALKALINE PHOSPHATASE 186(H) 35 - 104 U/L INTERFACE SYSTEM BILIRUBIN TOTAL 0.2 0.2 - 1.0 mg/dL INTERFACE SYSTEM ALBUMIN 4.1 3.4 - 4.8 g/dL INTERFACE SYSTEM TOTAL PROTEIN 7.5 6.3 - 8.6 g/dL INTERFACE SYSTEM ALT 37(H) 0 - 31 U/L INTERFACE SYSTEM BILIRUBIN DIRECT 0.1 0.0 - 0.3 mg/dL INTERFACE SYSTEM 08/01/2004 7:45 AM RESEARCH PHARMACIST Mera Stewart DO CHEMISTRY ORDERABLES Final Res ult INTERFACE SYSTEM Refer to clinic/hospital department documented in this encounter Visit Diagnoses Diagnosis Unspecified hypothyroidism- Primary documented in this encounter Care Teams Heel Nailing Machine Operator Relationship Specialty Start Date End Date Ambar Berrios MD [address] [place] [address] PCP - General Family Practice 01/21/21 documented as of this encounter
--- OUTSIDE RECORDS SUMMARY | 2025-04-15 13:47 | XMS_ITS | Encounter Summary ---
Author Organization [facility] Address [address] [place] [address] Care Team Providers Care Fruit Packer Face And Fill Name Role Phone Ambar Berrios MD Primary Care Provider [phone] Encounter Details Date Type Department Care Team (Latest Contact Info) Description 06/30/2004 Out[address] [facility], [facility] [address] [address] ESSEN HYPERTEN-ANTEPART (Primary Dx) Social History Tobacco Use Types Packs/Day Years Used Date Smoking Tobacco: Never Assessed Comments Unknown Sex and Gender Information Value Date Recorded Sex Assigned at Not on file Legal Sex Female 5:10 AM SHELL MOLDER Gender Identity Not on file Sexual Orientation Not on file documented as of this encounter Plan of Treatment Not on file documented as of this encounter Procedures Procedure Name Priority Date/Time Associated Diagnosis Comments CBC WITH DIFFERENTIAL Routine 06/30/2004 8:05 PM SHELL MOLDER CBC WITH DIFFERENTIAL Routine 06/30/2004 8:05 PM SHELL MOLDER HEPATIC FUNCTION PANEL Routine 06/30/2004 8:05 PM SHELL MOLDER documented in this encounter Results * (ABNORMAL) CBC WITH DIFFERENTIAL (06/30/2004 8:05 PM SHELL MOLDER) NEUTROPHILS 78(H) 45 - 70 % INTERFAC E SYSTEM LYMPHOCYTES 14(L) 16 - 45 % INTERFAC E SYSTEM MONOCYTES 6 3 - 13 % INTERFACE SYSTEM EOSINOPHILS 2 0 - 7 % INTERFAC E SYSTEM BASOPHILS 0 0 - 2 % INTERFACE SYSTEM NEUTROPHIL ABSOLUTE 7.25(H) 1.90 - 7.00 K/uL INTERFACE SYSTEM LYMPHOCYTE ABSOLUTE 1.29 0.70 - 4.50 K/uL INTERFACE SYSTEM MONOCYTE ABSOLUTE 0.59 0.10 - 1.30 K/uL INTERFACE SYSTEM EOSINOPHIL ABSOLUTE 0.18 0.00 - 0.70 K/uL INTERFACE SYSTEM BASOPHILS ABSOLUTE 0.01 0.00 - 0.20 K/uL INTERFACE SYSTEM 06/30/2004 8:05 PM SHELL MOLDER [employer] HEMATOLOGY ORDERABLES Final Re sult Performing Organization Address City/[facility]/ZIP Co de Phone Number INTERFACE SYSTEM Refer to clinic/hospital department * (ABNORMAL) CBC WITH DIFFERENTIAL (06/30/2004 8:05 PM SHELL MOLDER) WBC 9.3 4.0 - 9.8 K/uL INTERFACE SYSTEM RBC 4.28 3.90 - 4.90 M/uL INTERFACE SYSTEM HEMOGLOBIN 11.6(L) 11.8 - 14.8 g/dL INTERFACE SYSTEM HEMATOCRIT 36.1 35.5 - 44.0 % INTERFACE SYSTEM MCV 84.3 82.0 - 99.0 fL INTERFACE SYSTEM MCH 27.1(L) 27.2 - 32.6 pg INTERFACE SYSTEM MCHC 32.1 31.5 - 35.5 % INTERFACE SYSTEM RDW 13.7 11.5 - 14.5 % INTERFACE SYSTEM RDW-STDEV 42.0 37.1 - 48.7 fL INTERFACE SYSTEM PLATELETS 392(H) 140 - 350 K/uL INTERFACE SYSTEM MPV 9.9 9.3 - 12.4 fL INTERFACE SYSTEM 06/30/2004 8:05 PM SHELL MOLDER [employer] HEMATOLOGY ORDERABLES Final Re sult Performing Organization Address [facility]/ZIP Co de Phone Number INTERFACE SYSTEM Refer to clinic/hospital department * (ABNORMAL) HEPATIC FUNCTION PANEL (06/30/2004 8:05 PM SHELL MOLDER) AST 26 12 - 32 U/L INTERFACE SYSTEM ALKALINE PHOSPHATASE 332(H) 35 - 104 U/L INTERFACE SYSTEM BILIRUBIN TOTAL 0.2 0.2 - 1.0 mg/dL INTERFACE SYSTEM ALBUMIN 3.3(L) 3.4 - 4.8 g/dL INTERFACE SYSTEM TOTAL PROTEIN 7.2 6.3 - 8.6 g/dL INTERFACE SYSTEM ALT 42(H) 0 - 31 U/L INTERFACE SYSTEM BILIRUBIN DIRECT 0.1 0.0 - 0.3 mg/dL INTERFACE SYSTEM 06/30/2004 8:05 PM SHELL MOLDER Mera Stewart DO CHEMISTRY ORDERABLES Final Res ult INTERFACE SYSTEM Refer to clinic/hospital department documented in this encounter Visit Diagnoses Diagnosis Benign essential hypertension antepartum- Primary documented in this encounter Care Teams Fruit Packer Face And Fill Relationship Specialty Start Date End Date Ambar Berrios MD [address] [place] [address] PCP - General Family Practice 01/21/21 documented as of this encounter
== END 2025-04-15 13:26 | disposition home or self-care (01) ==
PROVIDERS: Emergency Provider Nurse Practitioner Family; PCP Family Medicine
DX: J01.90 Acute sinusitis, unspecified (principal); H65.03 Acute serous otitis media, bilateral; F17.210 Nicotine dependence, cigarettes, uncomplicated; F41.9 Anxiety disorder, unspecified; E06.3 Autoimmune thyroiditis
CPT/HCPCS: 99213; G0463